=== PATIENT | female | born 1930 | race Caucasian/White ===

== ENCOUNTER → 2016-10-22 | Outpatient (CLI) | payer OTHER ==
[~2016-10-22] MED LIST: AMLO2.5T PO; CARV12.52 PO; DABI1CAP PO; DONE1TAB11 PO; ESCI1TAB6 PO; FURO-85 PO; LEVO112T4 PO; VALA1TAB2 PO; [UNRECOGNIZED DRUG - CODE] PO; [UNRECOGNIZED DRUG - OTHER] IV
--- NOTE | 2016-10-22 15:17 | DIAGNOSTIC IMAGING REPORT ---
MRI OF THE BRAIN WITHOUT AND WITH IV CONTRAST CLINICAL HISTORY: COGNITIVE DECLINE mental status change COMPARISON STUDY: No previous studies for comparison. TECHNIQUE: Utilizing a 1.5 [place] magnet and dedicated coil, multiplanar, multiecho imaging of the brain was performed pre and postcontrast administration. IV administration of 8.5 mL of Gadavist contrast was uneventful. FINDINGS: Considerable chronic small vessel change of periventricular deep matter regions. Moderate atrophy. Ventricular system is midline. No significant postcontrast enhancement. No evidence for an acute ischemic insult based on diffusion imaging. IMPRESSION: 1. Considerable chronic small vessel change throughout both cerebral hemispheres. 2. Atrophy. 3. No acute process. Electronically signed by: Kevin Acevedo M.D. 10/22/2016 3:16 PM Dictated Date/Time: 10/22/2016 3:13 PM
== END | disposition home or self-care (01) ==
LOC: C.MRI 13:58
PROVIDERS: ATTEND Nurse Practitioner Family
DX: R26.89 Other abnormalities of gait and mobility (principal); R41.89 Other symptoms and signs involving cognitive functions and awareness; R32 Unspecified urinary incontinence

== ENCOUNTER → 2016-10-30 | Outpatient (CLI) | payer OTHER ==
--- NOTE | 2016-10-30 18:41 | DIAGNOSTIC IMAGING REPORT ---
CHEST 2 VIEWS ROUTINE CLINICAL HISTORY: R41.0 dyspnea COMPARISON STUDY: No previous studies for comparison. FINDINGS: Diffuse emphysematous and chronic interstitial change. Diaphragms smooth but flattened. Calcific angles are sharp. IMPRESSION: Emphysematous change. Interstitial fibrotic change bilaterally Electronically signed by: Kevin Acevedo M.D. 10/30/2016 6:39 PM Dictated Date/Time: 10/30/2016 6:39 PM
[2016-10-30 20:10] LABS: LYME DISEASE AB IGG NEG (NEG); LYME DISEASE AB IGM NEG (NEG)
== END | disposition home or self-care (01) ==
LOC: C.RAD 18:10
PROVIDERS: ATTEND Nurse Practitioner Family
DX: R41.0 Disorientation, unspecified (principal)

== ENCOUNTER 2016-12-08 20:17 | Inpatient (IN) | payer OTHER ==
[~2016-12-08] VITALS: Ht 157.5 cm; Wt 54.0 kg
[2016-12-08] MEDS ORDERED: SODIUM CHLORIDE 0.9% 1000ML 1,000 ML IV STA (20:42)
[2016-12-08] MEDS ORDERED: AMLO2.5T PO (20:52)
[2016-12-08] MEDS ORDERED: FURO-85 PO (20:52)
[2016-12-08] MEDS ORDERED: DABI1CAP PO (20:52)
[2016-12-08] MEDS ORDERED: LEVO112T4 PO (20:52)
[2016-12-08] MEDS ORDERED: DONE1TAB11 PO (20:52)
[2016-12-08] MEDS ORDERED: VALA1TAB2 PO (20:52)
[2016-12-08] MEDS ORDERED: CARV12.52 PO (20:52)
[2016-12-08] MEDS ORDERED: ESCI1TAB6 PO (20:52)
[2016-12-08] MEDS ORDERED: [UNRECOGNIZED DRUG - CODE] PO (20:52)
[2016-12-08 21:14] LABS: BASO % 0.4 %; BASO ABS # 0.03 K/uL (0-0.2); COMPLETE YES; EOS % 0.5 %; HEMATOCRIT 42.8 % (37-47); IG% 0.3 %; LYMPH % 17.8 %; MEAN CELL VOLUME 84.9 fL (80-100); MEAN CORPUSCULAR HEMOGLOBIN 28.6 pg (25-34); MEAN CORPUSCULAR HGB CONC 33.6 g/dl (32-36); MEAN PLATELET VOLUME 9.7 fL (7.4-10.4); MONO % 9.5 %; NEUT % 71.5 %; PLATELET COUNT 206 K/uL (130-400); RED BLOOD COUNT 5.04 M/uL (4.2-5.4); WHITE BLOOD COUNT 7.87 K/uL (4.8-10.8)
--- NOTE | 2016-12-08 21:15 | DIAGNOSTIC IMAGING REPORT ---
CHEST ONE VIEW PORTABLE CLINICAL HISTORY: Altered mental status. Weakness. COMPARISON STUDY: 10/30/2016 FINDINGS: The heart is mildly enlarged. There is persistent but decreasing interstitial thickening. There is no lobar consolidation. There is a linear subsegmental atelectatic change left base. There are no significant pleural effusions.[ IMPRESSION: AP portable study. No acute findings. Electronically signed by: Arvin Branham M.D. 12/08/2016 9:14 PM Dictated Date/Time: 12/08/2016 9:13 PM
[2016-12-08 21:33] LABS: ALT/SGPT 27 U/L (12-78); BLOOD UREA NITROGEN 21 mg/dl (7-18); BUN/CREATININE RATIO 20.6 (10-20); CALCIUM 9.9 mg/dl (8.5-10.1); CARBON DIOXIDE 23 mmol/L (21-32); CHLORIDE 95 mmol/L (98-107); GLUCOSE 75 mg/dl (70-99); MAGNESIUM 1.9 mg/dl (1.8-2.4); POTASSIUM 4.1 mmol/L (3.5-5.1); SODIUM 127 mmol/L (136-145)
[2016-12-08 21:37] LABS: INR 1.1 (0.9-1.1); PARTIAL THROMBOPLASTIN RATIO 1.5
[2016-12-08 21:44] LABS: ALKALINE PHOSPHATASE 66 U/L (45-117); AST/SGOT 32 U/L (15-37); CKMB/CK RATIO 1.5 (0-3.0)
--- NOTE | 2016-12-08 22:28 | DIAGNOSTIC IMAGING REPORT ---
CT HEAD WITHOUT CONTRAST (CT) CLINICAL HISTORY: Change in mental status. Weakness. COMPARISON STUDY: MRI the brain dated 10/22/2016 TECHNIQUE: Axial CT of the brain is performed from the vertex to the skull base. IV contrast was not administered for this examination. A dose lowering technique was utilized adhering to the principles of ALARA. CT DOSE: 1074.96 mGy.cm FINDINGS: No intra or extra-axial mass lesions are visualized. There is no CT evidence of acute cortical infarction. There is no evidence of midline shift. There is no acute hemorrhage. No calvarial fractures are visualized. There are extensive white matter hypodensities likely on a small vessel basis. There are old thalamic lacunar infarcts. There is no evidence of pathologic ventricular dilatation. There is no evidence of acute sinusitis. There are tiny air droplets in the region the right cavernous sinus. These are not felt to be of acute clinical significance IMPRESSION: Extensive white matter disease. 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 No acute intracranial findings. Electronically signed by: Arvin Branham M.D. 12/08/2016 10:26 PM Dictated Date/Time: 12/08/2016 10:24 PM
[2016-12-08 22:45] LABS: URINE APPEARANCE CLEAR (CLEAR); URINE BILIRUBIN NEG (NEG); URINE COLOR YELLOW; URINE NITRITE NEG (NEG); URINE SPECIFIC GRAVITY 1.014 (1.000-1.030); UROBILINOGEN NEG (NEG); ZZURINE CULT IF INDIC CATH NO
[2016-12-08 22:49] LABS: MANUAL MICROSCOPIC REQUIRED? NO; REVIEW REQ? NO
[2016-12-09] MEDS ORDERED: ACYCLOVIR SOD INJ 750 MG in DEXTROSE 5% 250ML 250 ML IV SCH (00:30)
--- NOTE | 2016-12-09 00:53 | EMERGENCY ROOM VISIT NOTE ---
History Report prepared by Lulu: Aleshia Villalta Under the Supervision of: Dr. Toan Augustine D.O. First contact with patient: 20:24 Chief Complaint: CONFUSION Stated Complaint: LEGS WON'T WORK,SHINGLES,CONFUSION History of Present Illness The patient is an 86 year old female who presents to the Emergency Room with complaints of worsening lower extremity weakness starting 1700 yesterday. The patient has a history of dementia. The history is provided by the patient's family. They state that her legs seems weaker than normal and that there seems to be a "disconnect between brain and legs". She seems confused. She usually is able to ambulate with a walker. Yesterday around 1700, she started having difficulty walking with her walker. Since this morning she has not been walking at all. She has become "petrified of falling". She reports some nausea. She denies any abdominal pain or SOB. She seemed to urinate less last night. The patient was diagnosed with shingles 2 days ago and was started on Valtrex. The patient has a history of Caraballo's palsy and her family states that her face appears normal. Source of History: patient, family Onset: 1700 yesterday Position: leg (bilateral) Quality: other (weakness) Timing: worsening Associated Symptoms: + nausea, No SOB, No abdominal pain Note: Pt is confused, urinating less. Review of Systems See HPI for pertinent positives & negatives. A total of 10 systems reviewed and were otherwise negative. Past Medical & Surgical Medical Problems: (1) Atrial fibrillation (2) Dementia Family History Cancer Heart disease Social History Smoking Status: Former Smoker Housing Status: lives with family Current/Historical Medications Scheduled Amlodipine (Norvasc), 2.5 MG PO QAM Carvedilol (Coreg), 12.5 MG PO QAM Dabigatran Etexilate Mesylate (Pradaxa), 75 MG PO BID Donepezil Hydrochloride (Donepezil Hcl), 5 MG PO HS Escitalopram Oxalate (Lexapro), 5 MG PO QAM Furosemide (Lasix), 20 MG PO 3XWK Levothyroxine Sodium (Levothyroxine Sodium), 112 MCG PO QAM Melatonin (Melatonin), 300 MCG PO HS Valacyclovir Hcl (Valtrex), 1,000 MG PO Q8 Allergies Coded Allergies: No Known Allergies (Unverified , 12/08/16) Physical Exam Vital Signs Date Time Temp Pulse Resp B/P (MAP) Pulse Ox O2 Delivery O2 Flow Rate FiO2 12/08/16 23:17 99 17 91 12/08/16 22:47 104 17 95 12/08/16 22:12 96 12/08/16 21:57 161/107 12/08/16 21:47 107 26 12/08/16 21:16 152/100 12/08/16 20:19 36.3 115 20 177/89 92 Room Air Physical Exam CONSTITUTIONAL/VITAL SIGNS: Reviewed / noted above. GENERAL: Non-toxic in appearance. INTEGUMENTARY: Warm, dry, and [place]. Shingles type rash on the left arm. HEAD: Normocephalic. EYES: without scleral icterus or trauma. ENT/OROPHARYNX: clear and moist. LYMPHADENOPATHY/NECK: Is supple without lymphadenopathy or meningismus. RESPIRATORY: Lungs clear and equal. CARDIOVASCULAR: Regular rate and rhythm. GI/ABDOMEN: Soft and nontender. No organomegaly or pulsatile mass. No rebound or guarding. Normal bowel sounds. EXTREMITIES: Normal patellar reflexes and symmetric strength, generalized weakness. BACK: No CVA tenderness. NEUROLOGICAL: Asymmetrical facial features although her family notes this is chronic and related to previous Caraballo's palsy. PSYCHIATRIC: normal affect. MUSCULOSKELETAL: Normally developed with good muscle tone. Medical Decision & Procedures ER Provider Diagnostic Interpretation: X ray results and stated below per my interpretation and radiology interpretation. Radiology results as stated below per my review and radiologist interpretation: CHEST ONE VIEW PORTABLE CLINICAL HISTORY: Altered mental status. Weakness. COMPARISON STUDY: 10/30/2016 FINDINGS: The heart is mildly enlarged. There is persistent but decreasing interstitial thickening. There is no lobar consolidation. There is a linear subsegmental atelectatic change left base. There are no significant pleural effusions.[ IMPRESSION: AP portable study. No acute findings. Electronically signed by: Arvin Branham M.D. 12/08/2016 9:14 PM Dictated Date/Time: 12/08/2016 9:[address] HEAD WITHOUT CONTRAST (CT) CLINICAL HISTORY: Change in mental status. Weakness. COMPARISON STUDY: MRI the brain dated 10/22/2016 TECHNIQUE: Axial CT of the brain is performed from the vertex to the skull base. IV contrast was not administered for this examination. A dose lowering technique was utilized adhering to the principles of ALARA. CT DOSE: 1074.96 mGy.cm FINDINGS: No intra or extra-axial mass lesions are visualized. There is no CT evidence of acute cortical infarction. There is no evidence of midline shift. There is no acute hemorrhage. No calvarial fractures are visualized. There are extensive white matter hypodensities likely on a small vessel basis. There are old thalamic lacunar infarcts. There is no evidence of pathologic ventricular dilatation. There is no evidence of acute sinusitis. There are tiny air droplets in the region the right cavernous sinus. These are not felt to be of acute clinical significance IMPRESSION: Extensive white matter disease. 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 No acute intracranial findings. Electronically signed by: Arvin Branham M.D. 12/08/2016 10:26 PM Dictated Date/Time: 12/08/2016 10:24 PM Laboratory Results 12/08/16 21:00 Red Blood Count 5.04, Mean Corpuscular Volume 84.9, Mean Corpuscular Hemoglobin 28.6, Mean Corpuscular Hemoglobin Concent 33.6, Mean Platelet Volume 9.7, Neutrophils (%) (Auto) 71.5, Lymphocytes (%) (Auto) 17.8, Monocytes (%) (Auto) 9.5, Eosinophils (%) (Auto) 0.5, Basophils (%) (Auto) 0.4, Neutrophils # (Auto) 5.63, Lymphocytes # (Auto) 1.40, Monocytes # (Auto) 0.75, Eosinophils # (Auto) 0.04, Basophils # (Auto) 0.03 12/08/16 21:00 Test 12/08/16 21:00 12/08/16 22:00 White Blood Count 7.87 K/uL (4.8-10.8) Red Blood Count 5.04 M/uL (4.2-5.4) Hemoglobin 14.4 g/dL (12.0-16.0) Hematocrit 42.8 % (37-47) Mean Corpuscular Volume 84.9 fL (80-100) Mean Corpuscular Hemoglobin 28.6 pg (25-34) Mean Corpuscular Hemoglobin Concent 33.6 g/dl (32-36) Platelet Count 206 K/uL (130-400) Mean Platelet Volume 9.7 fL (7.4-10.4) Neutrophils (%) (Auto) 71.5 % Lymphocytes (%) (Auto) 17.8 % Monocytes (%) (Auto) 9.5 % Eosinophils (%) (Auto) 0.5 % Basophils (%) (Auto) 0.4 % Neutrophils # (Auto) 5.63 K/uL (1.4-6.5) Lymphocytes # (Auto) 1.40 K/uL (1.2-3.4) Monocytes # (Auto) 0.75 K/uL (0.11-0.59) Eosinophils # (Auto) 0.04 K/uL (0-0.5) Basophils # (Auto) 0.03 K/uL (0-0.2) RDW Standard Deviation 44.5 fL (36.4-46.3) RDW Coefficient of Variation 14.4 % (11.5-14.5) Immature Granulocyte % (Auto) 0.3 % Immature Granulocyte # (Auto) 0.02 K/uL (0.00-0.02) Prothrombin Time 12.0 SECONDS (9.0-12.0) Prothromb Time International Ratio 1.1 (0.9-1.1) Activated Partial Thromboplast Time 40.0 SECONDS (21.0-31.0) Partial Thromboplastin Ratio 1.5 Anion Gap 9.0 mmol/L (3-11) Est Creatinine Clear Calc Drug Dose 31.4 ml/min Estimated GFR () 58.7 Estimated GFR (Non- 50.6 BUN/Creatinine Ratio 20.6 (10-20) Calcium Level 9.9 mg/dl (8.5-10.1) Magnesium Level 1.9 mg/dl (1.8-2.4) Total Bilirubin 0.5 mg/dl (0.2-1) Direct Bilirubin 0.1 mg/dl (0-0.2) Aspartate Amino Transf (AST/SGOT) 32 U/L (15-37) Alanine Aminotransferase (ALT/SGPT) 27 U/L (12-78) Alkaline Phosphatase 66 U/L (45-117) Total Creatine Kinase 40 U/L (26-192) Creatine Kinase MB 0.6 ng/ml (0.5-3.6) Creatine Kinase MB Ratio 1.5 (0-3.0) Troponin I < 0.015 ng/ml (0-0.045) Total Protein 7.8 gm/dl (6.4-8.2) Albumin 3.5 gm/dl (3.4-5.0) Thyroid Stimulating Hormone (TSH) 1.410 uIu/ml (0.300-4.500) Urine Color YELLOW Urine Appearance CLEAR (CLEAR) Urine pH 7.0 (4.5-7.5) Urine Specific [place] 1.014 (1.000-1.030) Urine Protein NEG (NEG) Urine Glucose (UA) NEG (NEG) Urine Ketones NEG (NEG) Urine Occult Blood TRACE (NEG) Urine Nitrite NEG (NEG) Urine Bilirubin NEG (NEG) Urine Urobilinogen NEG (NEG) Urine Leukocyte Esterase NEG (NEG) Urine WBC (Auto) 0 /hpf (0-5) Urine RBC (Auto) 0-4 /hpf (0-4) Urine Hyaline Casts (Auto) 0 /lpf (0-5) Urine Epithelial Cells (Auto) 5-10 /lpf (0-5) Urine Bacteria (Auto) NEG (NEG) Laboratory results as stated above per my review. Medications Administered Medications (Trade) Dose Ordered Sig/Latonya Route Start Time Stop Time Status Last Admin Dose Admin Sodium Chloride 1,000 ml @ 300 mls/hr Q3H20M STAT IV 12/08/16 20:42 12/09/16 00:01 DC 12/08/16 21:17 300 MLS/HR ECG Indication: weakness Rate (beats per minute): 116 Rhythm: atrial fibrillation Findings: no ectopy, other (no acute injury) ED Course 2024: Previous medical records were reviewed. The patient was evaluated in room A10. A complete history and physical examination was performed. 2041: NSS 1000 ml @ 300 mls/hr IV. 0013: On reevaluation, the patient is resting comfortably. I discussed the results and findings with her and her family. They verbalized agreement of the treatment plan. The patient will be evaluated for further management and care. 0027: I discussed the patient's case with Dr. Mcfarland, [facility] hospitalist service. The patient will be evaluated for further treatment and disposition. 0030: Acyclovir Sodium 750 mg/Dextrose 265 ml @ 265 mls/hr IV. Medical Decision Differential includes acute coronary syndrome, myocardial infarction, CVA, TIA, anemia, infection, pneumonia, UTI, pyelonephritis, poor nutrition, dehydration, electrolyte disturbance,hypoglycemia. This is an 86-year-old female who presents to the ED with a chief complaint of weakness. According to the family, the patient normally is around the walker. Today she was unable to walk. She seems a little more confused than her baseline. She does have a history of dementia. The patient was diagnosed with shingles a few days ago in her left arm. The patient has shingles of the left arm that appears to be following with one dermatome. She also has a rash in the perineum area that looks similar. This is concerning for disseminated shingles. She has been on Valtrex for the past few days. An EKG shows A. fib at rate of 116. She does have a chronic history of A. fib. She is on an oral anticoagulant. Her sodium was 127, BUN is 21. CBC was normal. Troponin was negative. TSH is normal. Urine did not show infection. CT scan of the brain and chest x-ray did not show acute disease. The patient was treated with IV fluids as well as IV acyclovir. The patient was seen with the hospitalist for further inpatient evaluation and care. Medication Reconcilliation Current Medication List: was personally reviewed by me Blood Pressure Screening Patient's blood pressure: Elevated blood pressure Blood pressure disposition: Referred to PCP Consults Time Called: 23 Consulting Physician: Dr. Mcfarland [facility] hospitalist service Returned Call: [phone] Discussed the patient's case. The patient will be evaluated for further treatment and disposition. Impression Primary Impression: Varicella zoster Additional Impressions: Hyponatremia Disseminated varicella Scribe Attestation The scribe's documentation has been prepared under my direction and personally reviewed by me in its entirety. I confirm that the note above accurately reflects all work, treatment, procedures, and medical decision making performed by me. Departure Information Dispostion Being Evaluated By Hospitalist Referrals Vida Bloom, C.R.N.P. (PCP) Patient Instructions My [facility] Problem Qualifiers
[2016-12-09] MEDS ORDERED: ONDANSETRON INJ 2 MG/ML 2 ML VIAL IV PRN (01:00)
[2016-12-09] MEDS ORDERED: MAGNESIUM HYDROXIDE SUSP 30 ML UDC PO PRN (01:00)
[2016-12-09] MEDS ORDERED: ALUMINUM/MAGNESIUM/SIMETH (MAALOX MAX) 30 ML UDC PO PRN (01:00)
[2016-12-09] MEDS ORDERED: POLYETHYLENE (MIRALAX) 17 GM PACK PO PRN (01:00)
[2016-12-09 01:27] LABS: PHOSPHORUS 2.3 mg/dl (2.5-4.9)
[2016-12-09 02:54] VITALS: Ht 157.5 cm; Wt 54.0 kg
--- NOTE | 2016-12-09 03:03 | HISTORY & PHYSICAL EXAMINATION ---
DATE OF ADMISSION: 12/08/2016 HISTORY OF PRESENT ILLNESS: This is an 86-year-old female with a medical history of chronic atrial fibrillation, vascular dementia, hypertension and a Caraballo's palsy. The patient developed a diffuse rash extending from her shoulder down to her arm with scattered vesicles and blisters approximately 2-3 days prior. She had been complaining of pain at the origin of the rash initially. Her daughter took her to see her primary physician, who placed her on valacyclovir presuming that this was shingles. Over the last 2 days, she has become lethargic, more confused than baseline and very weak, so that she cannot walk without assistance. She was referred back to the hospital, where it was noted that in addition to the rash over her left shoulder and arm, she now has a rash close to her buttock and right side of her perineum. This is again diffuse and macular in nature with scattered vesicles and bullae. She does not currently complain of pain and has not had fevers at home. The patient herself was unable to contribute additional complaints to the HPI. Her daughter is present at bedside and did not report any chest pain, shortness of breath, nausea, vomiting, diarrhea or dysuria. Initial labs do show a low sodium and are consistent with hydration. PAST MEDICAL HISTORY: 1. Chronic atrial fibrillation. 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 3. Hypertension. 4. Hyperlipidemia. 5. Depression. 6. The daughter states that the patient since a fall a few months ago has exhibited functional decline and for this reason recently relocated from [place] to [place], so that she can assist in her care. 7. Hypothyroidism. MEDICATIONS: As follows: 1 Amlodipine 2.5 mg daily. 2. Carvedilol 12.5 mg daily. 3. Pradaxa 75 mg b.i.d. 4. Donepezil 5 mg at bedtime. 5. Lexapro 5 mg q.a.m. 6. Levothyroxine 112 mcg daily. 7. Melatonin 300 mcg at bedtime. 8. Lasix 20 mg 3 times a week. 9. Recently prescribed valacyclovir 1 g q. 8 hours. SOCIAL HISTORY: She quit smoking 30 years ago and does not drink alcohol. FAMILY HISTORY: It is felt that her mother from an MD. We do not have any other details. REVIEW OF SYSTEMS: Could not be obtained from this patient. She had initially been complaining of pain in her left arm with development of the rash. She was brought in for confusion and weakness in addition to a new rash in her perineal area. PHYSICAL EXAMINATION: VITAL SIGNS: Blood pressure 150/100, heart rate is 99, and respirations 17. She is afebrile and satting at 95% on room air. GENERAL: This is a pleasant, slightly confused elderly female. She is awake, alert, and oriented x1.5 in no distress. HEAD AND NECK: There is chronic facial asymmetry with left-sided paralysis. No JVD, bruits, or thrush. HEART: S1 and 2 faint irregular. No clearly audible murmurs. LUNGS: Clear to auscultation bilaterally. ABDOMEN: Nontender and nondistended. Bowel sounds present. EXTREMITIES: Show no clubbing, cyanosis or edema. SKIN: Examination of the skin. There is a diffuse erythematous macular rash over the arm and around the perineal area. There are some scattered vesicles and bulla. There is no pain to palpation of the rash. NEUROLOGIC: The patient is oriented approximately at baseline. She does not exhibit any new focal deficits. She has chronic facial asymmetry due to previous caraballo's palsy. She is able to coordinate her movements and comply with physical exam. LABORATORY DATA: White count 7.8, hemoglobin 14.4, and platelets 206. Sodium 127, potassium 4, chloride 95, CO2 of 23, BUN 21, creatinine 1, and glucose 73. DIAGNOSTIC STUDIES: EKG is consistent with atrial fibrillation and does not show acute ischemic changes. ASSESSMENT AND PLAN: This is an 86-year-old female with a medical history of chronic atrial fibrillation, vascular dementia, and hypertension. She presents with a diffuse rash, weakness, and confusion. She had been prescribed Valtrex approximately 3 days earlier for presumed shingles on her left arm. The rash seems to have spread and now involves her perineal area as well. She will be admitted with the followin. Rash presumed due to varicella. Differential might include herpetic rash. It is noted that currently the rash is not painful and does not accurately follow a dermatome distribution. The patient will be placed on acyclovir 8 mg/kg t.i.d. and will be evaluated by the infectious disease service. We may have to consult dermatology if the diagnosis is not definitive and if it fails to improve in short term with the IV acyclovir. 2. Atrial fibrillation. She will remain on Coreg in addition to Pradaxa. 3. Dementia. We will continue donepezil and supportive care. 4. Hypothyroidism, continue levothyroxine. 5. Hypertension. Continue amlodipine and Coreg. 6. Hyponatremia likely secondary dehydration. The patient has been placed on IV fluids. We will trend her BNP. Total time for this admit including chart review, discussion with the ER physician, review of labs, medications, available records, discussion with the patient and daughter 38 minutes. MIGUEL ANGEL
[2016-12-09 03:10] VITALS: BP 169/81; PULSE 119; TEMP 37.4; O2SAT 94
[2016-12-09] MEDS ORDERED: ACYCLOVIR CONSULT ACTIVE PRN (04:45)
[2016-12-09] MEDS: NSS + 20MEQ KCL 1000ML 1,000 ML IV SCH ×2 (05:04→13:54)
[2016-12-09] MEDS: LEVOTHYROXINE 112 MCG TAB PO SCH (05:46)
[2016-12-09 07:02] VITALS: BP 153/92; PULSE 124; TEMP 37.9; O2SAT 91
[2016-12-09] MEDS: CARVEDILOL 12.5 MG TAB PO SCH (07:27)
[2016-12-09] MEDS: AMLODIPINE BESYLATE 5 MG TAB PO SCH (07:27)
[2016-12-09] MEDS: DABIGATRAN ELEXILATE 75 MG CAP PO SCH ×2 (07:27→21:25)
[2016-12-09] MEDS: ACETAMINOPHEN 325 MG TAB PO PRN (07:27)
[2016-12-09] MEDS: ESCITALOPRAM OXALATE 10 MG TAB PO SCH (07:28)
[2016-12-09 09:00] LABS: BUN/CREATININE RATIO 14.6 (10-20); CALCIUM 8.9 mg/dl (8.5-10.1); CREATININE 0.81 mg/dl (0.60-1.20); POTASSIUM 3.5 mmol/L (3.5-5.1)
[2016-12-09 09:16] VITALS: TEMP 36.4
--- NOTE | 2016-12-09 10:36 | Medical Consult ---
Consultation Date of Consultation: Dec 09, 2016. Attending Physician: Gerardo Small D.O. Reason for Consultation: Varicella versus herpes simplex infection History of Present Illness 86-year-old female with history of dementia, Caraballo's palsy, atrial fibrillation, who several days prior to admission developed blistering rash, initially with associated pain, involving her left arm. She was diagnosed zoster and started on oral valacyclovir. She then developed progressively worsening confusion, as well as similar rash involving her buttocks and perineal area. She was brought to the hospital admitted for possible disseminated varicella infection. She has been started on IV acyclovir. She remains confused but denies any specific complaints. No report of fever. Past Medical/Surgical History Medical Problems: (1) Disseminated varicella Status: Acute (2) Hyponatremia Status: Acute (3) Varicella zoster Status: Acute Medical Problems: (1) Atrial fibrillation (2) Dementia Family History Cancer Heart disease Social History Smoking Status: Unknown if Ever Smoked Housing Status: lives with family Allergies Coded Allergies: No Known Allergies (Unverified , 12/08/16) Current Inpatient Medications Current Inpatient Medications Medications (Trade) Dose Ordered Sig/Latonya Route Start Time Stop Time Status Last Admin Dose Admin Acetaminophen (Tylenol Tab) 650 mg Q4H PRN PO 12/09/16 01:00 01/08/17 00:59 12/09/16 07:27 650 MG Al Hydrox/Mg Hydrox/Simethicone (Maalox Max Susp) 15 ml Q4H PRN PO 12/09/16 01:00 01/08/17 00:59 Magnesium Hydroxide (Milk Of Magnesia Susp) 30 ml Q6H PRN PO 12/09/16 01:00 01/08/17 00:59 Polyethylene (Miralax Powder Packet) 17 gm DAILY PRN PO 12/09/16 01:00 01/08/17 00:59 Ondansetron HCl (Zofran Inj) 4 mg Q6H PRN IV 12/09/16 01:00 01/08/17 00:59 Potassium Chloride/Sodium Chloride 1,000 ml @ 100 mls/hr Q10H IV 12/09/16 04:30 12/10/16 00:29 12/09/16 05:04 100 MLS/HR Amlodipine Besylate (Norvasc Tab) 2.5 mg QAM PO 12/09/16 08:00 01/08/17 08:59 12/09/16 07:27 2.5 MG Carvedilol (Coreg Tab) 12.5 mg QAM PO 12/09/16 08:00 01/08/17 08:59 12/09/16 07:27 12.5 MG Dabigatran (Pradaxa Cap) 75 mg BID PO 12/09/16 08:00 01/08/17 08:59 12/09/16 07:27 75 MG Donepezil HCl (Aricept Tab) 5 mg HS PO 12/09/16 21:00 01/08/17 20:59 Escitalopram Oxalate (Lexapro Tab) 5 mg QAM PO 12/09/16 08:00 01/08/17 08:59 12/09/16 07:28 5 MG Levothyroxine Sodium (Synthroid Tab) 112 mcg DAILYBB PO 12/09/16 06:30 01/08/17 06:29 12/09/16 05:46 112 MCG Acyclovir Sodium 500 mg/Dextrose 110 ml @ 110 mls/hr Q12H IV 12/09/16 14:00 12/19/16 13:59 Acyclovir Sodium (Consult) 1 ea UD PRN N/A 12/09/16 04:45 01/08/17 04:44 Review of Systems Unable to obtain adequate review of systems because of patient's mental status Physical Exam Date Time Temp Pulse Resp B/P (MAP) Pulse Ox O2 Delivery O2 Flow Rate FiO2 12/09/16 09:16 36.4 12/09/16 08:00 Room Air 12/09/16 07:02 37.9 124 24 153/92 (112) 91 12/09/16 03:10 37.4 119 22 169/81 (110) 94 Nasal Cannula 12/09/16 02:54 Nasal Cannula 2.0 12/09/16 01:53 114 23 189/95 94 Nasal Cannula 2.0 12/09/16 00:32 112 27 168/135 92 Nasal Cannula 2.0 12/09/16 00:01 109 24 140/107 93 Nasal Cannula 2.0 12/08/16 23:17 99 17 91 12/08/16 22:47 104 17 95 12/08/16 22:12 96 12/08/16 21:57 161/107 12/08/16 21:47 107 26 12/08/16 21:16 152/100 12/08/16 20:19 36.3 115 20 177/89 92 Room Air General Appearance: WD/WN, no apparent distress Head: normocephalic, atraumatic Eyes: normal inspection, EOMI, sclerae normal ENT: normal ENT inspection, pharynx normal Neck: supple, no adenopathy, thyroid normal, trachea midline Respiratory/Chest: chest non-tender, lungs clear, normal breath sounds, no respiratory distress Cardiovascular: no gallop, no murmur, + irregularly irregular Abdomen/GI: normal bowel sounds, non tender, soft, no organomegaly Back: normal inspection, no CVA tenderness Extremities/Musculoskelatal: no calf tenderness, non-tender Neurologic/Psych: alert, + disoriented, + pertinent finding (Right Caraballo's palsy ) Skin: normal color, + pertinent finding (Blistering rash involving left arm, buttock and perineum, with 1 or 2 other scattered lesions.) Laboratory Results Patient Name: RALEIGH ARGUELLES Unit Number: [id number] Dictated: 12/08/162112 Transcribed: 12/08/162112 ARG Printed Date/Time: [~ rep prt dt]/[~ rep prt tm] [~ rep ct labl] - [~ rep ct ivnm] [facility] [place] [place] [address] Dictated: 12/08/162112 Transcribed: 12/08/162112 ARG Printed Date/Time: [~ rep prt dt]/[~ rep prt tm] [~ rep ct labl] - [~ rep ct ivnm] [~ rep ct add3]] CHEST ONE VIEW PORTABLE CLINICAL HISTORY: Altered mental status. Weakness. COMPARISON STUDY: 10/30/2016 FINDINGS: The heart is mildly enlarged. There is persistent but decreasing interstitial thickening. There is no lobar consolidation. There is a linear subsegmental atelectatic change left base. There are no significant pleural effusions.[ IMPRESSION: AP portable study. No acute findings. Electronically signed by: Arvin Branham M.D. 12/08/2016 9:14 PM Dictated Date/Time: 12/08/2016 9:13 PM The status of this report is Signed. Draft = Not yet reviewed or approved by Radiologist. Signed = Reviewed and approved by Radiologist. <AttendingPhy></AttendingPhy> <FamilyPhy>Vida Bloom C.R.N.PEagle</FamilyPhy> <PrimaryPhy>Vida Bloom C.REagleN.P.</PrimaryPhy> <UnitNumber>[id number]</ UnitNumber> <VisitNumber>[id number]</VisitNumber> <PatientName>RALEIGH ARGUELLES</ PatientName> <DateOfBirth>1930</DateOfBirth> <Location>[facility]</Location> < ServiceDate>12/08/16</ServiceDate> <MNE>ESINDI</MNE> <OrderingPhy>Toan Augustine D.O.</OrderingPhy> <OrderingPhyMNE>f rep ord dr parisi</OrderingPhyMNE> < DictatingPhyMNE>f rep dict dr parisi</DictatingPhyMNE> <CCListMNE>f rep ct mne</ CCListMNE> <AdmittingPhyMNE>f pt admit dr parisi</AdmittingPhyMNE> <AttendingPhyMNE >f pt attend dr parisi</AttendingPhyMNE> <ConsultingPhyMNE>f pt consult dr parisi</ConsultingPhyMNE> <FamilyPhyMNE>f pt fam dr parisi</FamilyPhyMNE> <OtherPhyMNE>f pt other dr parisi</OtherPhyMNE> < PrimaryPhyMNE>f pt prim care dr parisi</PrimaryPhyMNE> <ReferringPhyMNE>f pt referring dr parisi</ReferringPhyMNE> Last 24 Hours Test 12/08/16 21:00 12/08/16 22:00 12/09/16 07:51 White Blood Count 7.87 K/uL Red Blood Count 5.04 M/uL Hemoglobin 14.4 g/dL Hematocrit 42.8 % Mean Corpuscular Volume 84.9 fL Mean Corpuscular Hemoglobin 28.6 pg Mean Corpuscular Hemoglobin Concent 33.6 g/dl Platelet Count 206 K/uL Mean Platelet Volume 9.7 fL Neutrophils (%) (Auto) 71.5 % Lymphocytes (%) (Auto) 17.8 % Monocytes (%) (Auto) 9.5 % Eosinophils (%) (Auto) 0.5 % Basophils (%) (Auto) 0.4 % Neutrophils # (Auto) 5.63 K/uL Lymphocytes # (Auto) 1.40 K/uL Monocytes # (Auto) 0.75 K/uL Eosinophils # (Auto) 0.04 K/uL Basophils # (Auto) 0.03 K/uL RDW Standard Deviation 44.5 fL RDW Coefficient of Variation 14.4 % Immature Granulocyte % (Auto) 0.3 % Immature Granulocyte # (Auto) 0.02 K/uL Prothrombin Time 12.0 SECONDS Prothromb Time International Ratio 1.1 Activated Partial Thromboplast Time 40.0 SECONDS Partial Thromboplastin Ratio 1.5 Sodium Level 127 mmol/L 130 mmol/L Potassium Level 4.1 mmol/L 3.5 mmol/L Chloride Level 95 mmol/L 98 mmol/L Carbon Dioxide Level 23 mmol/L 23 mmol/L Anion Gap 9.0 mmol/L 9.0 mmol/L Blood Urea Nitrogen 21 mg/dl 12 mg/dl Creatinine 1.00 mg/dl 0.81 mg/dl Est Creatinine Clear Calc Drug Dose 31.4 ml/min 38.7 ml/min Estimated GFR () 58.7 75.7 Estimated GFR (Non- 50.6 65.3 BUN/Creatinine Ratio 20.6 14.6 Random Glucose 75 mg/dl 89 mg/dl Calcium Level 9.9 mg/dl 8.9 mg/dl Phosphorus Level 2.3 mg/dl Magnesium Level 1.9 mg/dl Total Bilirubin 0.5 mg/dl Direct Bilirubin 0.1 mg/dl Aspartate Amino Transf (AST/SGOT) 32 U/L Alanine Aminotransferase (ALT/SGPT) 27 U/L Alkaline Phosphatase 66 U/L Total Creatine Kinase 40 U/L Creatine Kinase MB 0.6 ng/ml Creatine Kinase MB Ratio 1.5 Troponin I < 0.015 ng/ml Total Protein 7.8 gm/dl Albumin 3.5 gm/dl Thyroid Stimulating Hormone (TSH) 1.410 uIu/ml Urine Color YELLOW Urine Appearance CLEAR Urine pH 7.0 Urine Specific [place] 1.014 Urine Protein NEG Urine Glucose (UA) NEG Urine Ketones NEG Urine Occult Blood TRACE Urine Nitrite NEG Urine Bilirubin NEG Urine Urobilinogen NEG Urine Leukocyte Esterase NEG Urine WBC (Auto) 0 /hpf Urine RBC (Auto) 0-4 /hpf Urine Hyaline Casts (Auto) 0 /lpf Urine Epithelial Cells (Auto) 5-10 /lpf Urine Bacteria (Auto) NEG Assessment & Plan Clinical picture most consistent with diagnosis of disseminated zoster infection , and worry about the possibility of [employer] involvement as well. Therefore I would continue patient on IV acyclovir to complete 10 days of therapy. Will follow.
--- NOTE | 2016-12-09 13:16 | Medical Student: [facility] ---
Med Student Progress Note Date of Service Dec 09, 2016. 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 Patient's daughter states that patient was seen at [facility] on 12/06, diagnosed with shingles on her left arm and prescribed Valacyclovir. Patient began to complain for bilateral lower leg weakness when trying to ambulate with walker at 1700 on 12/07. Patient's daughter states rash spread to patient's right buttock and upper posterior side of right thigh over past 2 days. Patient's daughter reports she was originally concerned about patient's mental status and noted increased confusion, but states currently patient is around baseline for her recently diagnosed dementia. Patient denies any pain concerning her rash and wishes to go home. Patient also denies any current symptoms (abdominal pain, chest pain, nausea, vomiting, diarrhea, dysuria, shortness of breath, headache, vision/hearing changes, fever, chills, sore throat, or nasal congestion). Review of Systems Constitutional: + weakness (see HPI), No fever, No chills Eyes: No worsening of vision, No redness ENT: + nasal symptoms (rhinorrhea at baseline), No sore throat Respiratory: No cough, No shortness of breath Cardiac: No chest pain, No edema, No palpitations Abdomen: No pain, No nausea, No vomiting, No diarrhea Musculoskeletal: No joint pain, No muscle pain Female : No dysuria, No incontinence Neurologic: + memory loss, + weakness, + balance problems (secondary to weakness in lower extremities) Heme: + abnormal bleeding/bruising (on Pradaxa for A-fib) Endo: No excessive thirst, No excessive urination Skin: + see HPI, + rash (blisters and reddness on left shoulder to elbow/back, right back of upper thigh and buttock), + new/changing skin lesions, + color change Objective Vital Signs Date Time Temp Pulse Resp B/P (MAP) Pulse Ox O2 Delivery O2 Flow Rate FiO2 12/09/16 09:16 36.4 12/09/16 08:00 Room Air 12/09/16 07:02 37.9 124 24 153/92 (112) 91 12/09/16 03:10 37.4 119 22 169/81 (110) 94 Nasal Cannula 12/09/16 02:54 Nasal Cannula 2.0 12/09/16 01:53 114 23 189/95 94 Nasal Cannula 2.0 12/09/16 00:32 112 27 168/135 92 Nasal Cannula 2.0 12/09/16 00:01 109 24 140/107 93 Nasal Cannula 2.0 12/08/16 23:17 99 17 91 12/08/16 22:47 104 17 95 12/08/16 22:12 96 12/08/16 21:57 161/107 12/08/16 21:47 107 26 12/08/16 21:16 152/100 12/08/16 20:19 36.3 115 20 177/89 92 Room Air Physical Exam General Appearance: WD/WN, no apparent distress Eyes: bilateral eyes normal inspection ENT: normal ENT inspection, hearing grossly normal Neck: supple Respiratory/Chest: chest non-tender, lungs clear, normal breath sounds, no respiratory distress, no accessory muscle use Cardiovascular: no edema, + irregularly irregular Abdomen: normal bowel sounds, non tender, soft Extremities: non-tender, normal inspection, no pedal edema Neurologic/Psychiatric: alert, normal mood/affect, oriented x 3, + facial droop (left sided paralysis at baseline from history of Caraballo's palsy) Skin: + rash, + pertinent finding (erythematous base with several bulla in diffferent stages of healing on left upper extremity (shoulder to elbow and around to back), second smaller area on right buttock/right lower extremity.) Laboratory Results Last 24 Hours Test 12/08/16 21:00 12/08/16 22:00 12/09/16 07:51 White Blood Count 7.87 K/uL Red Blood Count 5.04 M/uL Hemoglobin 14.4 g/dL Hematocrit 42.8 % Mean Corpuscular Volume 84.9 fL Mean Corpuscular Hemoglobin 28.6 pg Mean Corpuscular Hemoglobin Concent 33.6 g/dl Platelet Count 206 K/uL Mean Platelet Volume 9.7 fL Neutrophils (%) (Auto) 71.5 % Lymphocytes (%) (Auto) 17.8 % Monocytes (%) (Auto) 9.5 % Eosinophils (%) (Auto) 0.5 % Basophils (%) (Auto) 0.4 % Neutrophils # (Auto) 5.63 K/uL Lymphocytes # (Auto) 1.40 K/uL Monocytes # (Auto) 0.75 K/uL Eosinophils # (Auto) 0.04 K/uL Basophils # (Auto) 0.03 K/uL RDW Standard Deviation 44.5 fL RDW Coefficient of Variation 14.4 % Immature Granulocyte % (Auto) 0.3 % Immature Granulocyte # (Auto) 0.02 K/uL Prothrombin Time 12.0 SECONDS Prothromb Time International Ratio 1.1 Activated Partial Thromboplast Time 40.0 SECONDS Partial Thromboplastin Ratio 1.5 Sodium Level 127 mmol/L 130 mmol/L Potassium Level 4.1 mmol/L 3.5 mmol/L Chloride Level 95 mmol/L 98 mmol/L Carbon Dioxide Level 23 mmol/L 23 mmol/L Anion Gap 9.0 mmol/L 9.0 mmol/L Blood Urea Nitrogen 21 mg/dl 12 mg/dl Creatinine 1.00 mg/dl 0.81 mg/dl Est Creatinine Clear Calc Drug Dose 31.4 ml/min 38.7 ml/min Estimated GFR () 58.7 75.7 Estimated GFR (Non- 50.6 65.3 BUN/Creatinine Ratio 20.6 14.6 Random Glucose 75 mg/dl 89 mg/dl Calcium Level 9.9 mg/dl 8.9 mg/dl Phosphorus Level 2.3 mg/dl Magnesium Level 1.9 mg/dl Total Bilirubin 0.5 mg/dl Direct Bilirubin 0.1 mg/dl Aspartate Amino Transf (AST/SGOT) 32 U/L Alanine Aminotransferase (ALT/SGPT) 27 U/L Alkaline Phosphatase 66 U/L Total Creatine Kinase 40 U/L Creatine Kinase MB 0.6 ng/ml Creatine Kinase MB Ratio 1.5 Troponin I < 0.015 ng/ml Total Protein 7.8 gm/dl Albumin 3.5 gm/dl Thyroid Stimulating Hormone (TSH) 1.410 uIu/ml Urine Color YELLOW Urine Appearance CLEAR Urine pH 7.0 Urine Specific [place] 1.014 Urine Protein NEG Urine Glucose (UA) NEG Urine Ketones NEG Urine Occult Blood TRACE Urine Nitrite NEG Urine Bilirubin NEG Urine Urobilinogen NEG Urine Leukocyte Esterase NEG Urine WBC (Auto) 0 /hpf Urine RBC (Auto) 0-4 /hpf Urine Hyaline Casts (Auto) 0 /lpf Urine Epithelial Cells (Auto) 5-10 /lpf Urine Bacteria (Auto) NEG Assessment and Plan Assessment and Plan: Assessment: Serina Gardner is a 86 yo female with PMHx of vascular dementia, chronic atrial fibrillation, HTN, and Caraballo's palsy of left side, presented with weakness x2 days, vesicular rash with erythematous base on left shoulder and right buttock/ thigh worsening x3 days, and potentially some confusion above baseline. Since admission patient was started on 8mg/kg TID of acyclovir and has been tachycardic and febrile. After infections disease consult, patient was recommended to continue IV acyclovir for 10 days. Considered diagnosis of UTI (no pertinent urine cytology and WBC of 7.89 on CBC) , cardiac cause (negative troponin), and acute neurologic cause (no acute intracranial findings on head CT without contrast). Plan: 1) Disseminated Zoster - Continue acyclovir 8mg/kg TID - Consult Infectious disease, who stated - Consult dermatology if symptoms not improving 2) Delirium causing generalized weakness - Continue care in hospital until can discharge to SNF or rehab (after afebrile for 24 hours and lesions have scabbed over). - Consult PT/OT/manager social responsibility - [place] patient to surroundings, times of day. 3) Hyponatremia - Continue IV fluids and trend BNPs and Sodium (127) 3) Vascular Dementia - Continue home medications (Donepezil 5mg at bedtime, Lexapro 5g/day, Melatonin 300 mcg/day) 4) Chronic atrial fibrillation / DVT prophylaxis - Continue home medications (Pradaxa 75mg/day and Carvedilol 12.5mg/day) 5) Hypothyroidism - Continue home medications (Levothyroxine 112mcg/day) 6) Chronic HTN - Continue home medications (amlodipine 2.5mg/day and Lasix 20mg 3x/week)
[2016-12-09] MEDS: ACYCLOVIR SOD INJ 500 MG in DEXTROSE 5% 100ML 100 ML IV SCH (13:54)
[2016-12-09 14:59] VITALS: BP 149/80; PULSE 111; TEMP 36.5; O2SAT 94
--- NOTE | 2016-12-09 15:14 | Family Medicine Progress Note ---
Progress Note Date of Service Dec 09, 2016. Subjective Pt evaluation today including: conversation w/ patient, conversation w/ family , physical exam, chart review, lab review, review of studies Pain: no pain reported this morning Voiding: no voiding problems, no incontinence Patient denies any pain and states that she is feeling better and wants to go home. She denies any itching, burning, numbness, tingling, fever or chills. Constitutional: No fever, No chills, No sweats Respiratory: No cough, No shortness of breath Cardiovascular: No chest pain, No palpitations Abdomen: No pain, No nausea, No vomiting Skin: + rash, No itch, No new/changing skin lesions, No bleeding Medications Current Inpatient Medications Medications (Trade) Dose Ordered Sig/Latonya Route Start Time Stop Time Status Last Admin Dose Admin Acetaminophen (Tylenol Tab) 650 mg Q4H PRN PO 12/09/16 01:00 01/08/17 00:59 12/09/16 07:27 650 MG Al Hydrox/Mg Hydrox/Simethicone (Maalox Max Susp) 15 ml Q4H PRN PO 12/09/16 01:00 01/08/17 00:59 Magnesium Hydroxide (Milk Of Magnesia Susp) 30 ml Q6H PRN PO 12/09/16 01:00 01/08/17 00:59 Polyethylene (Miralax Powder Packet) 17 gm DAILY PRN PO 12/09/16 01:00 01/08/17 00:59 Ondansetron HCl (Zofran Inj) 4 mg Q6H PRN IV 12/09/16 01:00 01/08/17 00:59 Potassium Chloride/Sodium Chloride 1,000 ml @ 100 mls/hr Q10H IV 12/09/16 04:30 12/10/16 00:29 12/09/16 13:54 100 MLS/HR Amlodipine Besylate (Norvasc Tab) 2.5 mg QAM PO 12/09/16 08:00 01/08/17 08:59 12/09/16 07:27 2.5 MG Carvedilol (Coreg Tab) 12.5 mg QAM PO 12/09/16 08:00 01/08/17 08:59 12/09/16 07:27 12.5 MG Dabigatran (Pradaxa Cap) 75 mg BID PO 12/09/16 08:00 01/08/17 08:59 12/09/16 07:27 75 MG Donepezil HCl (Aricept Tab) 5 mg HS PO 12/09/16 21:00 01/08/17 20:59 Escitalopram Oxalate (Lexapro Tab) 5 mg QAM PO 12/09/16 08:00 01/08/17 08:59 12/09/16 07:28 5 MG Levothyroxine Sodium (Synthroid Tab) 112 mcg DAILYBB PO 12/09/16 06:30 01/08/17 06:29 12/09/16 05:46 112 MCG Acyclovir Sodium 500 mg/Dextrose 110 ml @ 110 mls/hr Q12H IV 12/09/16 14:00 12/19/16 13:59 12/09/16 13:54 110 MLS/HR Acyclovir Sodium (Consult) 1 ea UD PRN N/A 12/09/16 04:45 01/08/17 04:44 Objective Vital Signs Date Time Temp Pulse Resp B/P (MAP) Pulse Ox O2 Delivery O2 Flow Rate FiO2 12/09/16 14:59 36.5 111 18 149/80 (103) 94 Room Air 12/09/16 09:16 36.4 12/09/16 08:00 Room Air 12/09/16 07:02 37.9 124 24 153/92 (112) 91 12/09/16 03:10 37.4 119 22 169/81 (110) 94 Nasal Cannula 12/09/16 02:54 Nasal Cannula 2.0 12/09/16 01:53 114 23 189/95 94 Nasal Cannula 2.0 12/09/16 00:32 112 27 168/135 92 Nasal Cannula 2.0 12/09/16 00:01 109 24 140/107 93 Nasal Cannula 2.0 12/08/16 23:17 99 17 91 12/08/16 22:47 104 17 95 12/08/16 22:12 96 12/08/16 21:57 161/107 12/08/16 21:47 107 26 12/08/16 21:16 152/100 12/08/16 20:19 36.3 115 20 177/89 92 Room Air Physical Exam General Appearance: WD/WN, no apparent distress Neck: supple, no carotid bruits Respiratory/Chest: chest non-tender, lungs clear, normal breath sounds Cardiovascular: no edema, no gallop, + irregularly irregular Abdomen: normal bowel sounds, non tender, soft Neurologic/Psychiatric: alert, oriented x 3 Skin: + rash, + pertinent finding (patient appears to have a herpetic rash with an erythematous base and vesicles along with scabbing over her left shoulder moving down over the posterior aspect of her left arm to the elbow. She also has a visible rash over the left side of her buttocks as well as her perennial area.) Laboratory Results Results Past 24 Hours Test 12/08/16 21:00 12/08/16 22:00 12/09/16 07:51 Range/Units White Blood Count 7.87 4.8-10.8 K/uL Red Blood Count 5.04 4.2-5.4 M/uL Hemoglobin 14.4 12.0-16.0 g/dL Hematocrit 42.8 37-47 % Mean Corpuscular Volume 84.9 80-100 fL Mean Corpuscular Hemoglobin 28.6 25-34 pg Mean Corpuscular Hemoglobin Concent 33.6 32-36 g/dl Platelet Count 206 130-400 K/uL Mean Platelet Volume 9.7 7.4-10.4 fL Neutrophils (%) (Auto) 71.5 % Lymphocytes (%) (Auto) 17.8 % Monocytes (%) (Auto) 9.5 % Eosinophils (%) (Auto) 0.5 % Basophils (%) (Auto) 0.4 % Neutrophils # (Auto) 5.63 1.4-6.5 K/uL Lymphocytes # (Auto) 1.40 1.2-3.4 K/uL Monocytes # (Auto) 0.75 0.11-0.59 K/uL Eosinophils # (Auto) 0.04 0-0.5 K/uL Basophils # (Auto) 0.03 0-0.2 K/uL RDW Standard Deviation 44.5 36.4-46.3 fL RDW Coefficient of Variation 14.4 11.5-14.5 % Immature Granulocyte % (Auto) 0.3 % Immature Granulocyte # (Auto) 0.02 0.00-0.02 K/uL Prothrombin Time 12.0 9.0-12.0 SECONDS Prothromb Time International Ratio 1.1 0.9-1.1 Activated Partial Thromboplast Time 40.0 21.0-31.0 SECONDS Partial Thromboplastin Ratio 1.5 Sodium Level 127 130 136-145 mmol/L Potassium Level 4.1 3.5 3.5-5.1 mmol/L Chloride Level 95 98 98-107 mmol/L Carbon Dioxide Level 23 23 21-32 mmol/L Anion Gap 9.0 9.0 3-11 mmol/L Blood Urea Nitrogen 21 12 7-18 mg/dl Creatinine 1.00 0.81 0.60-1.20 mg/dl Est Creatinine Clear Calc Drug Dose 31.4 38.7 ml/min Estimated GFR () 58.7 75.7 Estimated GFR (Non- 50.6 65.3 BUN/Creatinine Ratio 20.6 14.6 10-20 Random Glucose 75 89 70-99 mg/dl Calcium Level 9.9 8.9 8.5-10.1 mg/dl Phosphorus Level 2.3 2.5-4.9 mg/dl Magnesium Level 1.9 1.8-2.4 mg/dl Total Bilirubin 0.5 0.2-1 mg/dl Direct Bilirubin 0.1 0-0.2 mg/dl Aspartate Amino Transf (AST/SGOT) 32 15-37 U/L Alanine Aminotransferase (ALT/SGPT) 27 12-78 U/L Alkaline Phosphatase 66 45-117 U/L Total Creatine Kinase 40 26-192 U/L Creatine Kinase MB 0.6 0.5-3.6 ng/ml Creatine Kinase MB Ratio 1.5 0-3.0 Troponin I < 0.015 0-0.045 ng/ml Total Protein 7.8 6.4-8.2 gm/dl Albumin 3.5 3.4-5.0 gm/dl Thyroid Stimulating Hormone (TSH) 1.410 0.300-4.500 uIu/ml Urine Color YELLOW Urine Appearance CLEAR CLEAR Urine pH 7.0 4.5-7.5 Urine Specific [place] 1.014 1.000-1.030 Urine Protein NEG NEG Urine Glucose (UA) NEG NEG Urine Ketones NEG NEG Urine Occult Blood TRACE NEG Urine Nitrite NEG NEG Urine Bilirubin NEG NEG Urine Urobilinogen NEG NEG Urine Leukocyte Esterase NEG NEG Urine WBC (Auto) 0 0-5 /hpf Urine RBC (Auto) 0-4 0-4 /hpf Urine Hyaline Casts (Auto) 0 0-5 /lpf Urine Epithelial Cells (Auto) 5-10 0-5 /lpf Urine Bacteria (Auto) NEG NEG Assessment and Plan Patient is a 86-year-old female with a past medical history of atrial fibrillation, vascular dementia, hypertension, 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 The patient was initially worked up 3 days ago as an outpatient with her family doctor and started on valacyclovir. The patient 2 days prior to admission and also been more confused and lethargic, and was unable to walk without assistance and some history reported by her daughter. The rash then continued to progress and was noticed on admission over her buttocks and perineal area. Since admission the patient has been febrile and tachycardic, and was started on IV acyclovir with a dose of 8 mg/kg 3 times a day. The patient was seen this morning by infectious disease and deemed that it would be reasonable to have the patient continue 10 days of antibiotic IV therapy on acyclovir for disseminated varicella. According to the daughter the patient has not been on any recent immunosuppressive medications including prednisone or any arthritic medications. 1) Disseminated varicella-zoster infection - Day 2 IV acyclovir, 8 mg/kg 3 times a day - Consultation to infectious disease, recommend 10 days of total IV antibiotic therapy - Patient remains febrile this morning - Awaiting discharge for at least 24 hour of remaining afebrile, As well as crusting over of herpetic lesions. 2) Atrial fibrillation - Coreg - Pradaxa 3) Dementia - Donepezil 4) Hypothyroidism - Synthroid 5) Hyponatremia - Improving with IV Fluids 6) DVT Prophylaxis - Pradaxa 7) Code Status - Full Resuscitation 8) Disposition - We'll most likely discharge patient to SNF for therapy as well as IV medication Resident Physician Supervision Note: I interviewed and examined the patient. Discussed with Dr. Davidson and agree with findings and plan as documented in the note. Any exceptions or clarifications are listed here: None Documented By: Gerardo Small feeling fine wants to go home. explained to pt and dtr regarding zoster and acyclovir. discussed if 10 days IV truly needed, then SNF/rehab might be appropriate dispo once afebrile and lesions crust vitals noted nad breathing unlabored. L shoulder, perineal vesicles on erythematous base, a few scattered ulcerations disseminated zoster - acyclovir otherwise as above Resident Tracking Resident Involvement: Resident Care Provided Care Provided: Adult Hospital Medicine
[2016-12-09] MEDS: DONEPEZIL HCL 5 MG TAB PO SCH (21:25)
[2016-12-10 00:48] VITALS: BP 182/94; PULSE 111; TEMP 37.4; O2SAT 92
[2016-12-10] MEDS: ACYCLOVIR SOD INJ 500 MG in DEXTROSE 5% 100ML 100 ML IV SCH ×2 (02:17→13:26)
[2016-12-10] MEDS: LEVOTHYROXINE 112 MCG TAB PO SCH (06:06)
[2016-12-10 06:10] LABS: HEMATOCRIT 36.3 % (37-47); MEAN CELL VOLUME 85.2 fL (80-100); MEAN CORPUSCULAR HEMOGLOBIN 29.3 pg (25-34); MEAN CORPUSCULAR HGB CONC 34.4 g/dl (32-36); MEAN PLATELET VOLUME 9.6 fL (7.4-10.4); PLATELET COUNT 176 K/uL (130-400); RED BLOOD COUNT 4.26 M/uL (4.2-5.4); WHITE BLOOD COUNT 8.73 K/uL (4.8-10.8)
[2016-12-10 06:45] LABS: CREATININE 0.8 mg/dl (0.60-1.20); MAGNESIUM 1.7 mg/dl (1.8-2.4)
--- NOTE | 2016-12-10 07:08 | Family Medicine Progress Note ---
Progress Note Date of Service Dec 10, 2016. Subjective Pt evaluation today including: conversation w/ patient, physical exam, chart review, lab review, review of studies Pain: No pain reported this morning Voiding: no voiding problems, no incontinence Patient is resting comfortably in bed today with no acute events overnight. The patient denies any pain this morning, any pain from her rash on her left side, or any pain from her rash on her cranial area and lower back. Although the patient would like to go home, the patient understands that she will most likely need to have rehabilitation as well as IV antibiotics and it would be appropriate for her to go to a intermediate facility. Constitutional: No fever, No chills Respiratory: No cough Cardiovascular: No chest pain Abdomen: No pain, No nausea, No vomiting Female : No dysuria Skin: + rash, No bleeding Medications Current Inpatient Medications Medications (Trade) Dose Ordered Sig/Latonya Route Start Time Stop Time Status Last Admin Dose Admin Acetaminophen (Tylenol Tab) 650 mg Q4H PRN PO 12/09/16 01:00 01/08/17 00:59 12/09/16 07:27 650 MG Al Hydrox/Mg Hydrox/Simethicone (Maalox Max Susp) 15 ml Q4H PRN PO 12/09/16 01:00 01/08/17 00:59 Magnesium Hydroxide (Milk Of Magnesia Susp) 30 ml Q6H PRN PO 12/09/16 01:00 01/08/17 00:59 Polyethylene (Miralax Powder Packet) 17 gm DAILY PRN PO 12/09/16 01:00 01/08/17 00:59 Ondansetron HCl (Zofran Inj) 4 mg Q6H PRN IV 12/09/16 01:00 01/08/17 00:59 Amlodipine Besylate (Norvasc Tab) 2.5 mg QAM PO 12/09/16 08:00 01/08/17 08:59 12/09/16 07:27 2.5 MG Carvedilol (Coreg Tab) 12.5 mg QAM PO 12/09/16 08:00 01/08/17 08:59 12/09/16 07:27 12.5 MG Dabigatran (Pradaxa Cap) 75 mg BID PO 12/09/16 08:00 01/08/17 08:59 12/09/16 21:25 75 MG Donepezil HCl (Aricept Tab) 5 mg HS PO 12/09/16 21:00 01/08/17 20:59 12/09/16 21:25 5 MG Escitalopram Oxalate (Lexapro Tab) 5 mg QAM PO 12/09/16 08:00 01/08/17 08:59 12/09/16 07:28 5 MG Levothyroxine Sodium (Synthroid Tab) 112 mcg DAILYBB PO 12/09/16 06:30 01/08/17 06:29 12/10/16 06:06 112 MCG Acyclovir Sodium 500 mg/Dextrose 110 ml @ 110 mls/hr Q12H IV 12/09/16 14:00 12/19/16 13:59 12/10/16 02:17 110 MLS/HR Acyclovir Sodium (Consult) 1 ea UD PRN N/A 12/09/16 04:45 01/08/17 04:44 Objective Vital Signs Date Time Temp Pulse Resp B/P (MAP) Pulse Ox O2 Delivery O2 Flow Rate FiO2 12/10/16 00:48 37.4 111 20 182/94 (123) 92 Room Air 2.0 12/10/16 00:00 Room Air 12/09/16 20:00 Room Air 12/09/16 16:00 Room Air 12/09/16 14:59 36.5 111 18 149/80 (103) 94 Room Air 12/09/16 09:16 36.4 12/09/16 08:00 Room Air Physical Exam General Appearance: WD/WN, no apparent distress Eyes: normal inspection, sclerae normal Respiratory/Chest: chest non-tender, lungs clear, normal breath sounds Cardiovascular: regular rate, rhythm, no edema Abdomen: normal bowel sounds, non tender, soft Extremities: no pedal edema, no calf tenderness Neurologic/Psychiatric: alert, normal mood/affect, oriented x 3 Skin: + pertinent finding (Vesicular rash with erythematous base and scabbed lesions over the left shoulder spreading over the left posterior arm to the elbow, the right lower back, and the perineal area. All lesions appear to be improving and less erythematous, and they are beginning to scab over.) Laboratory Results Results Past 24 Hours Test 12/09/16 07:51 12/10/16 05:32 12/10/16 07:02 Range/Units Sodium Level 130 136-145 mmol/L Potassium Level 3.5 3.5-5.1 mmol/L Chloride Level 98 98-107 mmol/L Carbon Dioxide Level 23 21-32 mmol/L Anion Gap 9.0 3-11 mmol/L Blood Urea Nitrogen 12 7-18 mg/dl Creatinine 0.81 0.80 0.60-1.20 mg/dl Est Creatinine Clear Calc Drug Dose 38.7 39.2 ml/min Estimated GFR () 75.7 76.8 Estimated GFR (Non- 65.3 66.3 BUN/Creatinine Ratio 14.6 10-20 Random Glucose 89 70-99 mg/dl Calcium Level 8.9 8.5-10.1 mg/dl White Blood Count 8.73 4.8-10.8 K/uL Red Blood Count 4.26 4.2-5.4 M/uL Hemoglobin 12.5 12.0-16.0 g/dL Hematocrit 36.3 37-47 % Mean Corpuscular Volume 85.2 80-100 fL Mean Corpuscular Hemoglobin 29.3 25-34 pg Mean Corpuscular Hemoglobin Concent 34.4 32-36 g/dl RDW Standard Deviation 45.6 36.4-46.3 fL RDW Coefficient of Variation 14.6 11.5-14.5 % Platelet Count 176 130-400 K/uL Mean Platelet Volume 9.6 7.4-10.4 fL Magnesium Level 1.7 1.8-2.4 mg/dl Assessment and Plan Patient is an 86-year-old female that presented to the hospital with a vesicular rash over her left shoulder and arm, and was found to have a disseminated varicella-zoster infection. The patient is continuing to improve while on IV acyclovir, and has now been afebrile over the last 24 hours. We are still awaiting the remaining lesions to scab over before placing a referral to a intermediate facility. The patient was seen by physical therapy this morning, and was determined that she is not safe to return home at this time. The patient was found to have decreased safety awareness, and difficulty with getting tasks done. 1) Disseminated varicella-zoster infection - Day 3 IV acyclovir, 8 mg/kg 3 times a day - Lesions appear to be improving,With decreased erythema at the bases with improved scabbing - Consultation to infectious disease, recommend 10 days of total IV antibiotic therapy - Patient has been afebrile for the last 24 hours - Awaiting discharge for crusting over of herpetic lesions 2) Physical therapy -Seen by PT this morning - Determine the patient is not safe to return home at this time - Patient found to have decreased safety awareness and having difficulty with getting tasks done 3) Atrial fibrillation - Heart rate is improving with antibiotic therapy, and remained below 100 bpm today - Coreg - Pradaxa 4) Dementia - Donepezil 5) Hypothyroidism - Synthroid 6) Hyponatremia - Improving with IV Fluids 7) DVT Prophylaxis - Pradaxa 8) Code Status - Full Resuscitation 9) Disposition - We'll most likely discharge patient to SNF for therapy as well as IV medication Resident Physician Supervision Note: I interviewed and examined the patient. Discussed with Dr. Davidson and agree with findings and plan as documented in the note. Any exceptions or clarifications are listed here: None Documented By: Gerardo Small feeling fine. all other ROS otherwise negative except for as above vitals noted vesicles/blisters starting to show slightly exudative appearing crusts forming a/p disseminated zoster - IV acyclovir. given mild sx and improvement - ??possibly can switch to PO - will need further input from ID in this regard weakness/deconditioning - for SNF/rehab confusion - strongly suspect delirium on dementia rather than encephalopathy given overall nontoxic waxing and waning presenttaion Resident Tracking Resident Involvement: Resident Care Provided Care Provided: Adult Hospital Medicine
[2016-12-10 07:27] VITALS: BP 146/72; PULSE 98; TEMP 37.2; O2SAT 93
[2016-12-10] MEDS ORDERED: MAGNESIUM SULFATE 1GM / D5W 1 GM in PREMIXED IN D5W 100 ML IV ONE (07:30)
[2016-12-10] MEDS: AMLODIPINE BESYLATE 5 MG TAB PO SCH (07:40)
[2016-12-10] MEDS: ESCITALOPRAM OXALATE 10 MG TAB PO SCH (07:40)
[2016-12-10] MEDS: DABIGATRAN ELEXILATE 75 MG CAP PO SCH ×2 (07:40→19:35)
[2016-12-10] MEDS: CARVEDILOL 12.5 MG TAB PO SCH (07:40)
[2016-12-10 08:21] LABS: BUN/CREATININE RATIO 16.9 (10-20); CALCIUM 9.1 mg/dl (8.5-10.1); CREATININE 0.87 mg/dl (0.60-1.20); POTASSIUM 3.6 mmol/L (3.5-5.1)
--- NOTE | 2016-12-10 10:29 | Medical Student: [facility] ---
Med Student Progress Note Date of Service Dec 10, 2016. Subjective Pt evaluation today including: conversation w/ patient, physical exam, chart review, lab review, review of studies Pain: patient denies PO Intake: tolerating PO diet Voiding: no voiding problems Serina Gardner is in good spirits and states she wants to go home. She states she is able to ambulate with walker to the bathroom, which is patient's baseline and her bilateral leg weakness prior to arrival has resolved. Patient is denying any pain associated with her shingles rash or nausea (resolved since admission). Patient notes slight headache and runny nose that she says she has at baseline. Review of Systems Constitutional: + problem reported (headache reported at baseline), No fever, No chills, No sweats, No fatigue Eyes: No worsening of vision, No redness ENT: + problem reported (rhinorrhea at baseline), No hearing loss, No sore throat Respiratory: No cough, No shortness of breath Cardiac: No chest pain, No edema Abdomen: No pain, No nausea (resolved), No vomiting, No diarrhea Musculoskeletal: No joint pain, No muscle pain Female : No dysuria, No urinary frequency Neurologic: + memory loss (dementia at baseline), No weakness, No numbness/ tingling, No balance problems (ambulating with walker, at baseline) Skin: + rash (vesicular rash with erythematous base on left shoulder and right thigh/buttock), No new/changing skin lesions (no new lesions, lesions beginning to crust over) Objective Vital Signs Date Time Temp Pulse Resp B/P (MAP) Pulse Ox O2 Delivery O2 Flow Rate FiO2 12/10/16 08:00 Nasal Cannula 2.0 12/10/16 07:27 37.2 98 16 146/72 (96) 93 3.0 12/10/16 00:48 37.4 111 20 182/94 (123) 92 Room Air 2.0 12/10/16 00:00 Room Air 12/09/16 20:00 Room Air 12/09/16 16:00 Room Air 12/09/16 14:59 36.5 111 18 149/80 (103) 94 Room Air Physical Exam General Appearance: WD/WN, no apparent distress Eyes: bilateral eyes normal inspection, bilateral eyes PERRL ENT: normal ENT inspection, hearing grossly normal Neck: supple Respiratory/Chest: chest non-tender, lungs clear, normal breath sounds, no respiratory distress, no accessory muscle use Cardiovascular: no edema, + irregularly irregular (history of chronic atrial fibrillation) Abdomen: normal bowel sounds, non tender, soft Extremities: normal range of motion, non-tender, normal inspection, no pedal edema Neurologic/Psychiatric: alert, normal mood/affect, oriented x 3, + facial droop (left sided at baseline from history of caraballo's palsy) Skin: warm/dry, + rash (vessicles on left arm/shoulder/back with erythematous base that is starting to scab over; additional smaller collection of vesicles on right buttock/upper posterior thigh) Laboratory Results Last 24 Hours Test 12/10/16 05:32 12/10/16 07:36 White Blood Count 8.73 K/uL Red Blood Count 4.26 M/uL Hemoglobin 12.5 g/dL Hematocrit 36.3 % Mean Corpuscular Volume 85.2 fL Mean Corpuscular Hemoglobin 29.3 pg Mean Corpuscular Hemoglobin Concent 34.4 g/dl RDW Standard Deviation 45.6 fL RDW Coefficient of Variation 14.6 % Platelet Count 176 K/uL Mean Platelet Volume 9.6 fL Creatinine 0.80 mg/dl 0.87 mg/dl Est Creatinine Clear Calc Drug Dose 39.2 ml/min 36.0 ml/min Estimated GFR () 76.8 69.4 Estimated GFR (Non- 66.3 59.9 Magnesium Level 1.7 mg/dl Sodium Level 130 mmol/L Potassium Level 3.6 mmol/L Chloride Level 99 mmol/L Carbon Dioxide Level 23 mmol/L Anion Gap 8.0 mmol/L Blood Urea Nitrogen 15 mg/dl BUN/Creatinine Ratio 16.9 Random Glucose 81 mg/dl Calcium Level 9.1 mg/dl Medications Medications Administered Medications (Trade) Dose Ordered Sig/Latonya Route Start Time Stop Time Status Last Admin Dose Admin Sodium Chloride 1,000 ml @ 300 mls/hr Q3H20M STAT IV 12/08/16 20:42 12/09/16 00:01 DC 12/08/16 21:17 300 MLS/HR Acyclovir Sodium 750 mg/Dextrose 265 ml @ 265 mls/hr Q8H IV 12/09/16 00:30 12/09/16 04:23 DC 12/09/16 01:45 265 MLS/HR Acetaminophen (Tylenol Tab) 650 mg Q4H PRN PO 12/09/16 01:00 01/08/17 00:59 12/09/16 07:27 650 MG Potassium Chloride/Sodium Chloride 1,000 ml @ 100 mls/hr Q10H IV 12/09/16 04:30 12/10/16 00:29 DC 12/09/16 13:54 100 MLS/HR Amlodipine Besylate (Norvasc Tab) 2.5 mg QAM PO 12/09/16 08:00 01/08/17 08:59 12/10/16 07:40 2.5 MG Carvedilol (Coreg Tab) 12.5 mg QAM PO 12/09/16 08:00 01/08/17 08:59 12/10/16 07:40 12.5 MG Dabigatran (Pradaxa Cap) 75 mg BID PO 12/09/16 08:00 01/08/17 08:59 12/10/16 07:40 75 MG Donepezil HCl (Aricept Tab) 5 mg HS PO 12/09/16 21:00 01/08/17 20:59 12/09/16 21:25 5 MG Escitalopram Oxalate (Lexapro Tab) 5 mg QAM PO 12/09/16 08:00 01/08/17 08:59 12/10/16 07:40 5 MG Levothyroxine Sodium (Synthroid Tab) 112 mcg DAILYBB PO 12/09/16 06:30 01/08/17 06:29 12/10/16 06:06 112 MCG Acyclovir Sodium 500 mg/Dextrose 110 ml @ 110 mls/hr Q12H IV 12/09/16 14:00 12/19/16 13:59 12/10/16 02:17 110 MLS/HR Magnesium Sulfate 1 gm/Prmx 100 ml @ 100 mls/hr NOW ONCE IV 12/10/16 07:30 12/10/16 08:29 DC 12/10/16 07:39 100 MLS/HR Assessment and Plan Assessment and Plan: Assessment: Serina Gardner is a 86 yo female with PMHx of vascular dementia, chronic atrial fibrillation, HTN, and Caraballo's palsy of left side, presented with weakness x3 days, vesicular rash with erythematous base on left shoulder and right buttock/ thigh worsening x4 days, and potentially some confusion above baseline. Since admission patient was started on 8mg/kg TID of acyclovir. Patient was tachycardic and febrile, but has been afebrile for the last 24 hours. After infectious disease consult, patient was recommended to continue IV acyclovir for 10 days. Plan: 1) Disseminated Zoster - Continue acyclovir 8mg/kg TID - Consult Infectious disease 12/09, who recommended patient continuing acyclovir for 10days - Continue to monitor patient's rash to see if improving on treatment (not spreading, scabbing of vesicles, no increase in pain, afebrile). On 12/10, patient's rash has not spread, looks slightly less erythematous, patient is not complaining of pain, and has been afebrile for 24 hours. 2) Delirium causing generalized weakness - Continue care in hospital until can discharge to SNF or rehab (after afebrile for 24 hours and lesions have scabbed over). - Consult PT/OT/social work nurse to figure out which SNF/rehab patient can go to , pending her insurance. - [place] patient to surroundings, times of day. 3) Hyponatremia - Continue IV fluids and trend Sodium (127, 130, 130) 3) Vascular Dementia - Continue home medications (Donepezil 5mg at bedtime, Lexapro 5g/day, Melatonin 300 mcg/day) 4) Chronic atrial fibrillation / DVT prophylaxis - Continue home medications (Pradaxa 75mg/day and Carvedilol 12.5mg/day) 5) Hypothyroidism - Continue home medications (Levothyroxine 112mcg/day) 6) Chronic HTN - Continue home medications (amlodipine 2.5mg/day and Lasix 20mg 3x/week) Discharge planning: rehab hospital
[2016-12-10 14:50] VITALS: BP 116/75; PULSE 76; TEMP 36.6; O2SAT 100
[2016-12-10 16:11] VITALS: BP 119/77; PULSE 89; TEMP 36.9; O2SAT 92
[2016-12-10] MEDS: ACETAMINOPHEN 325 MG TAB PO PRN (18:43)
--- NOTE | 2016-12-10 19:03 | Infectious Disease Progress Nt ---
Progress Note Date of Service Dec 10, 2016. Subjective Pt evaluation today including: conversation w/ patient, physical exam, chart review, lab review, review of studies, conversation w/ commercial solar sales consultant, review of inpatient medication list No new complaints. Mental status at baseline. No fever. All Other Systems: Reviewed and Negative Medications Current Inpatient Medications Medications (Trade) Dose Ordered Sig/Latonya Route Start Time Stop Time Status Last Admin Dose Admin Acetaminophen (Tylenol Tab) 650 mg Q4H PRN PO 12/09/16 01:00 01/08/17 00:59 12/10/16 18:43 650 MG Al Hydrox/Mg Hydrox/Simethicone (Maalox Max Susp) 15 ml Q4H PRN PO 12/09/16 01:00 01/08/17 00:59 Magnesium Hydroxide (Milk Of Magnesia Susp) 30 ml Q6H PRN PO 12/09/16 01:00 01/08/17 00:59 Polyethylene (Miralax Powder Packet) 17 gm DAILY PRN PO 12/09/16 01:00 01/08/17 00:59 Ondansetron HCl (Zofran Inj) 4 mg Q6H PRN IV 12/09/16 01:00 01/08/17 00:59 Amlodipine Besylate (Norvasc Tab) 2.5 mg QAM PO 12/09/16 08:00 01/08/17 08:59 12/10/16 07:40 2.5 MG Carvedilol (Coreg Tab) 12.5 mg QAM PO 12/09/16 08:00 01/08/17 08:59 12/10/16 07:40 12.5 MG Dabigatran (Pradaxa Cap) 75 mg BID PO 12/09/16 08:00 01/08/17 08:59 12/10/16 07:40 75 MG Donepezil HCl (Aricept Tab) 5 mg HS PO 12/09/16 21:00 01/08/17 20:59 12/09/16 21:25 5 MG Escitalopram Oxalate (Lexapro Tab) 5 mg QAM PO 12/09/16 08:00 01/08/17 08:59 12/10/16 07:40 5 MG Levothyroxine Sodium (Synthroid Tab) 112 mcg DAILYBB PO 12/09/16 06:30 01/08/17 06:29 12/10/16 06:06 112 MCG Acyclovir Sodium 500 mg/Dextrose 110 ml @ 110 mls/hr Q12H IV 12/09/16 14:00 12/19/16 13:59 12/10/16 13:26 110 MLS/HR Acyclovir Sodium (Consult) 1 ea UD PRN N/A 12/09/16 04:45 01/08/17 04:44 Objective Vital Signs Date Time Temp Pulse Resp B/P (MAP) Pulse Ox O2 Delivery O2 Flow Rate FiO2 12/10/16 16:11 36.9 89 20 119/77 (91) 92 12/10/16 16:00 Nasal Cannula 2.0 12/10/16 14:50 36.6 76 18 116/75 (89) 100 Nasal Cannula 4.0 12/10/16 08:00 Nasal Cannula 2.0 12/10/16 07:27 37.2 98 16 146/72 (96) 93 3.0 12/10/16 00:48 37.4 111 20 182/94 (123) 92 Room Air 2.0 12/10/16 00:00 Room Air 12/09/16 20:00 Room Air Physical Exam General Appearance: WD/WN, no apparent distress Eyes: normal inspection, sclerae normal ENT: normal ENT inspection, pharynx normal Neck: supple, no adenopathy, trachea midline Respiratory/Chest: lungs clear, normal breath sounds, no respiratory distress Cardiovascular: regular rate, rhythm, no gallop, no murmur Abdomen: normal bowel sounds, non tender, soft, no organomegaly Extremities: non-tender, no calf tenderness Neurologic/Psychiatric: alert, oriented x 3 Skin: normal color, + pertinent finding (rash crusting) Laboratory Results Last 24 Hours Test 12/10/16 05:32 12/10/16 07:36 White Blood Count 8.73 K/uL Red Blood Count 4.26 M/uL Hemoglobin 12.5 g/dL Hematocrit 36.3 % Mean Corpuscular Volume 85.2 fL Mean Corpuscular Hemoglobin 29.3 pg Mean Corpuscular Hemoglobin Concent 34.4 g/dl RDW Standard Deviation 45.6 fL RDW Coefficient of Variation 14.6 % Platelet Count 176 K/uL Mean Platelet Volume 9.6 fL Creatinine 0.80 mg/dl 0.87 mg/dl Est Creatinine Clear Calc Drug Dose 39.2 ml/min 36.0 ml/min Estimated GFR () 76.8 69.4 Estimated GFR (Non- 66.3 59.9 Magnesium Level 1.7 mg/dl Sodium Level 130 mmol/L Potassium Level 3.6 mmol/L Chloride Level 99 mmol/L Carbon Dioxide Level 23 mmol/L Anion Gap 8.0 mmol/L Blood Urea Nitrogen 15 mg/dl BUN/Creatinine Ratio 16.9 Random Glucose 81 mg/dl Calcium Level 9.1 mg/dl Assessment and Plan Clinical picture most consistent with diagnosis of disseminated zoster infection , and worry about the possibility of MANAGER DOCUMENTATION involvement as well. Therefore I would continue patient on IV acyclovir to complete 10 days of therapy. Will follow.
[2016-12-10] MEDS: DONEPEZIL HCL 5 MG TAB PO SCH (19:35)
[2016-12-10 22:55] VITALS: BP 156/89; PULSE 97; TEMP 36.7; O2SAT 98
[2016-12-11] MEDS: ACYCLOVIR SOD INJ 500 MG in DEXTROSE 5% 100ML 100 ML IV SCH ×2 (01:56→13:48)
[2016-12-11] MEDS: LEVOTHYROXINE 112 MCG TAB PO SCH (05:38)
[2016-12-11 07:25] VITALS: BP 138/81; PULSE 106; TEMP 36.9; O2SAT 91
[2016-12-11] MEDS: CARVEDILOL 12.5 MG TAB PO SCH (07:54)
[2016-12-11] MEDS: ESCITALOPRAM OXALATE 10 MG TAB PO SCH (07:54)
[2016-12-11] MEDS: DABIGATRAN ELEXILATE 75 MG CAP PO SCH ×2 (07:55→19:30)
[2016-12-11] MEDS: AMLODIPINE BESYLATE 5 MG TAB PO SCH (07:55)
[2016-12-11 15:12] VITALS: BP 113/71; PULSE 83; TEMP 36.3; O2SAT 95
[2016-12-11] MEDS: DONEPEZIL HCL 5 MG TAB PO SCH (19:30)
--- NOTE | 2016-12-11 21:36 | Family Medicine Progress Note ---
Progress Note Date of Service Dec 11, 2016. Subjective Pt evaluation today including: conversation w/ patient, physical exam, chart review, lab review, review of studies Pain: No pain reported this morning Voiding: no voiding problems, no incontinence Patient is an 86-year-old female that presents to the hospital with systemic varicella infection. The patient denies any pain this morning and states that she is feeling well. I discussed with the patient the plan of weaning until her lesions are fully crusted over or discharging her to a usp facility. We also discussed the required 10 day course of antibiotic treatment , and the possibility of needing a PICC placement. Constitutional: No fever, No chills, No sweats Respiratory: No cough, No shortness of breath Cardiovascular: No chest pain, No palpitations Abdomen: No pain, No nausea, No vomiting, No diarrhea, No constipation Female : No dysuria Skin: + rash (Vesicular rash over her left shoulder posterior arm in addition to above right buttocks as well as of her perineal area) Medications Current Inpatient Medications Medications (Trade) Dose Ordered Sig/Latonya Route Start Time Stop Time Status Last Admin Dose Admin Acetaminophen (Tylenol Tab) 650 mg Q4H PRN PO 12/09/16 01:00 01/08/17 00:59 12/10/16 18:43 650 MG Al Hydrox/Mg Hydrox/Simethicone (Maalox Max Susp) 15 ml Q4H PRN PO 12/09/16 01:00 01/08/17 00:59 Magnesium Hydroxide (Milk Of Magnesia Susp) 30 ml Q6H PRN PO 12/09/16 01:00 01/08/17 00:59 Polyethylene (Miralax Powder Packet) 17 gm DAILY PRN PO 12/09/16 01:00 01/08/17 00:59 Ondansetron HCl (Zofran Inj) 4 mg Q6H PRN IV 12/09/16 01:00 01/08/17 00:59 Amlodipine Besylate (Norvasc Tab) 2.5 mg QAM PO 12/09/16 08:00 01/08/17 08:59 12/11/16 07:55 2.5 MG Carvedilol (Coreg Tab) 12.5 mg QAM PO 12/09/16 08:00 01/08/17 08:59 12/11/16 07:54 12.5 MG Dabigatran (Pradaxa Cap) 75 mg BID PO 12/09/16 08:00 01/08/17 08:59 12/11/16 19:30 75 MG Donepezil HCl (Aricept Tab) 5 mg HS PO 12/09/16 21:00 01/08/17 20:59 12/11/16 19:30 5 MG Escitalopram Oxalate (Lexapro Tab) 5 mg QAM PO 12/09/16 08:00 01/08/17 08:59 12/11/16 07:54 5 MG Levothyroxine Sodium (Synthroid Tab) 112 mcg DAILYBB PO 12/09/16 06:30 01/08/17 06:29 12/11/16 05:38 112 MCG Acyclovir Sodium 500 mg/Dextrose 110 ml @ 110 mls/hr Q12H IV 12/09/16 14:00 12/19/16 13:59 12/11/16 13:48 110 MLS/HR Acyclovir Sodium (Consult) 1 ea UD PRN N/A 12/09/16 04:45 01/08/17 04:44 Objective Vital Signs Date Time Temp Pulse Resp B/P (MAP) Pulse Ox O2 Delivery O2 Flow Rate FiO2 12/11/16 16:00 Nasal Cannula 2.0 12/11/16 15:12 36.3 83 22 113/71 (85) 95 Nasal Cannula 2.0 12/11/16 08:54 Nasal Cannula 2.0 12/11/16 07:25 36.9 106 20 138/81 (100) 91 Room Air 12/11/16 00:00 Nasal Cannula 2.0 12/10/16 22:55 36.7 97 18 156/89 (111) 98 Nasal Cannula 2.0 Physical Exam General Appearance: WD/WN, no apparent distress Eyes: normal inspection, sclerae normal Respiratory/Chest: chest non-tender, lungs clear, normal breath sounds Cardiovascular: regular rate, rhythm, no edema, no gallop Abdomen: normal bowel sounds, non tender, soft Neurologic/Psychiatric: alert Assessment and Plan The patient is an 86-year-old female that is being treated for systemic varicella-zoster infection with lesions over her left shoulder, posterior to her left arm, above her right buttocks, and on her perineal area. She is currently on day 4 of IV acyclovir with plans to treat for 10 days with IV antibiotics. The patient has been afebrile for the last 48 hours, and continues to improve. Her lesions appear to be scabbing over and we anticipate that she will be discharged to a usp facility tomorrow. 1) Disseminated varicella-zoster infection - Day 4 IV acyclovir, 8 mg/kg 3 times a day - Disseminated lesions appear to be well healing at this point, and are mostly scabbed over. - Consultation to infectious disease, recommend 10 days of total IV antibiotic therapy - Patient has been afebrile for the last 48 hours 2) Physical therapy - Determine the patient is not safe to return home at this time - Patient found to have decreased safety awareness and having difficulty with getting tasks done 3) Atrial fibrillation - Rate controlled on current medications - Coreg - Pradaxa 4) Dementia - Donepezil 5) Hypothyroidism - Synthroid 6) Hyponatremia - Improving with IV Fluids 7) DVT Prophylaxis - Pradaxa 8) Code Status - Full Resuscitation 9) Disposition - We'll most likely discharge patient to SNF for therapy - Anticipate being discharged tomorrow Resident Physician Supervision Note: I interviewed and examined the patient. Discussed with Dr. Davidson and agree with findings and plan as documented in the note. Any exceptions or clarifications are listed here: None Documented By: Gerardo Small feeling ok. no new complaints. markus noted nad breathing unlabored vesicles/ulcers starting to crust disseminated zoster - IV acyclovir, supportive care. hopefully to SNF tomorrow as long as lesions have crusted more Resident Tracking Resident Involvement: Resident Care Provided Care Provided: Adult Hospital Medicine
[2016-12-11 23:20] VITALS: BP 151/77; PULSE 94; TEMP 36.8; O2SAT 95
[2016-12-12] VITALS: O2SAT 95
[2016-12-12] MEDS: ACYCLOVIR SOD INJ 500 MG in DEXTROSE 5% 100ML 100 ML IV SCH ×2 (01:58→14:08)
[2016-12-12] MEDS: LEVOTHYROXINE 112 MCG TAB PO SCH (05:35)
[2016-12-12] MEDS: ACETAMINOPHEN 325 MG TAB PO PRN (05:35)
[2016-12-12 06:10] LABS: CREATININE 0.89 mg/dl (0.60-1.20)
[2016-12-12 07:29] VITALS: BP 153/73; PULSE 96; TEMP 36.7; O2SAT 96
--- NOTE | 2016-12-12 08:05 | Medical Student: [facility] ---
Med Student Progress Note Date of Service Dec 12, 2016. Subjective Pt evaluation today including: conversation w/ patient, chart review, lab review Pain: patient denies pain from rash, slight neck pain from sleeping PO Intake: patient tolerating PO diet Voiding: no voiding problems, no incontinence Serina Gardner is a 86 yo female with PMHx of dementia who is in good spirits. When prompted she states she has some right sided neck pain, noting it was probably from how she was sleeping, but denies any pain when rotating her head or when pressing on her neck. She denies any pain from her shingles rash and states she is ready to leave the hospital. Review of Systems Constitutional: No fever, No chills Eyes: No eye pain, No redness ENT: No nasal symptoms, No sore throat Respiratory: No cough, No wheezing, No shortness of breath Cardiac: No chest pain, No edema Abdomen: No pain, No nausea Musculoskeletal: + muscle pain (slight right sided neck pain that patient equates to sleeping on "funny"), No joint pain Female : No dysuria, No hematuria, No incontinence Neurologic: + memory loss (dementia at baseline), No numbness/tingling Endo: No excessive thirst, No excessive urination Skin: + see HPI, + rash (vesicular rash with erythematous base that is scabbing over on left shoulder and right posterior thigh/buttock) Objective Vital Signs Date Time Temp Pulse Resp B/P (MAP) Pulse Ox O2 Delivery O2 Flow Rate FiO2 12/12/16 07:29 36.7 96 18 153/73 (99) 96 Room Air 12/12/16 00:00 95 Nasal Cannula 2.0 12/11/16 23:20 36.8 94 20 151/77 (101) 95 Nasal Cannula 2.0 12/11/16 16:00 Nasal Cannula 2.0 12/11/16 15:12 36.3 83 22 113/71 (85) 95 Nasal Cannula 2.0 12/11/16 08:54 Nasal Cannula 2.0 Physical Exam General Appearance: WD/WN, no apparent distress Eyes: bilateral eyes normal inspection ENT: normal ENT inspection, hearing grossly normal Neck: supple Respiratory/Chest: no respiratory distress, no accessory muscle use Cardiovascular: no edema Extremities: normal range of motion Neurologic/Psychiatric: alert, normal mood/affect Skin: normal color, warm/dry, + rash (vesicles on erythematous base that are crusting over on left shoulder and right posterior thigh) Laboratory Results Last 24 Hours Test 12/12/16 05:13 Creatinine 0.89 mg/dl Est Creatinine Clear Calc Drug Dose 35.2 ml/min Estimated GFR () 67.5 Estimated GFR (Non- 58.3 Medications Medications Administered Medications (Trade) Dose Ordered Sig/Latonya Route Start Time Stop Time Status Last Admin Dose Admin Sodium Chloride 1,000 ml @ 300 mls/hr Q3H20M STAT IV 12/08/16 20:42 12/09/16 00:01 DC 12/08/16 21:17 300 MLS/HR Acyclovir Sodium 750 mg/Dextrose 265 ml @ 265 mls/hr Q8H IV 12/09/16 00:30 12/09/16 04:23 DC 12/09/16 01:45 265 MLS/HR Acetaminophen (Tylenol Tab) 650 mg Q4H PRN PO 12/09/16 01:00 01/08/17 00:59 12/12/16 05:35 650 MG Ondansetron HCl (Zofran Inj) 4 mg Q6H PRN IV 12/09/16 01:00 01/08/17 00:59 12/12/16 08:58 4 MG Potassium Chloride/Sodium Chloride 1,000 ml @ 100 mls/hr Q10H IV 12/09/16 04:30 12/10/16 00:29 DC 12/09/16 13:54 100 MLS/HR Amlodipine Besylate (Norvasc Tab) 2.5 mg QAM PO 12/09/16 08:00 01/08/17 08:59 12/12/16 08:57 2.5 MG Carvedilol (Coreg Tab) 12.5 mg QAM PO 12/09/16 08:00 01/08/17 08:59 12/12/16 08:56 12.5 MG Dabigatran (Pradaxa Cap) 75 mg BID PO 12/09/16 08:00 01/08/17 08:59 12/12/16 08:57 75 MG Donepezil HCl (Aricept Tab) 5 mg HS PO 12/09/16 21:00 01/08/17 20:59 12/11/16 19:30 5 MG Escitalopram Oxalate (Lexapro Tab) 5 mg QAM PO 12/09/16 08:00 01/08/17 08:59 12/12/16 08:56 5 MG Levothyroxine Sodium (Synthroid Tab) 112 mcg DAILYBB PO 12/09/16 06:30 01/08/17 06:29 12/12/16 05:35 112 MCG Acyclovir Sodium 500 mg/Dextrose 110 ml @ 110 mls/hr Q12H IV 12/09/16 14:00 12/19/16 13:59 12/12/16 14:08 110 MLS/HR Magnesium Sulfate 1 gm/Prmx 100 ml @ 100 mls/hr NOW ONCE IV 12/10/16 07:30 12/10/16 08:29 DC 12/10/16 07:39 100 MLS/HR Ketorolac Tromethamine (Toradol Inj) 15 mg NOW STAT IV. 12/12/16 08:51 12/12/16 08:58 DC 12/12/16 09:10 15 MG Assessment and Plan Assessment and Plan: Assessment: Serina Gardner is a 86 yo female with PMHx of vascular dementia, chronic atrial fibrillation, HTN, and Caraballo's palsy of left side, presented with weakness x4 days, vesicular rash with erythematous base on left shoulder and right buttock/ thigh worsening x5 days, and potentially some confusion above baseline. Since admission patient was started on 8mg/kg TID of acyclovir. Patient was tachycardic and febrile, but has been afebrile for the last 48 hours. After infectious disease consult, patient was recommended to continue IV acyclovir for 10 days. Plan: 1) Disseminated Zoster - Continue acyclovir 8mg/kg TID - Consult Infectious disease 12/09, who recommended patient continuing acyclovir for 10days - Continue to monitor patient's rash to see if improving on treatment (not spreading, scabbing of vesicles, no increase in pain, afebrile). On 12/10, patient's rash has not spread, looks slightly less erythematous, patient is not complaining of pain, and has been afebrile for 24 hours. On 12/12 patient's rash appears less erythematous and is crusting over nicely, patient is not complaining of pain, and has been afebrile for 48 hours. 2) Delirium causing generalized weakness - Continue care in hospital until can discharge to SNF or rehab (after afebrile for 24 hours and lesions have scabbed over). Patient has met criteria on 12/12, and care team is working on patient transfer to SNF. - Consult PT/OT/social human services assistants to figure out which SNF/rehab patient can go to , pending her insurance. Patient is scheduled for transfer to [facility] as she has been cleared medically. - [place] patient to surroundings, times of day. 3) Hyponatremia - Continue IV fluids and trend Sodium (127, 130, 130) 3) Vascular Dementia - Continue home medications (Donepezil 5mg at bedtime, Lexapro 5g/day, Melatonin 300 mcg/day) 4) Chronic atrial fibrillation / DVT prophylaxis - Continue home medications (Pradaxa 75mg/day and Carvedilol 12.5mg/day) 5) Hypothyroidism - Continue home medications (Levothyroxine 112mcg/day) 6) Chronic HTN - Continue home medications (amlodipine 2.5mg/day and Lasix 20mg 3x/week) Discharge planning: rehab hospital
[2016-12-12] MEDS ORDERED: KETOROLAC TROMETHAMINE 15 MG/ML VIAL IV. STA (08:51)
[2016-12-12] MEDS: ESCITALOPRAM OXALATE 10 MG TAB PO SCH (08:56)
[2016-12-12] MEDS: CARVEDILOL 12.5 MG TAB PO SCH (08:56)
[2016-12-12] MEDS: DABIGATRAN ELEXILATE 75 MG CAP PO SCH ×2 (08:57→20:38)
[2016-12-12] MEDS: AMLODIPINE BESYLATE 5 MG TAB PO SCH (08:57)
--- NOTE | 2016-12-12 09:36 | Discharge Instructions ---
Discharge Instructions Date of Service Dec 13, 2016. Admission Reason for Admission: Disseminated Varicella Discharge Discharge Diagnosis / Problem: Disseminated Varicella Discharge Goals Goal(s): Decrease discomfort, Therapeutic intervention Activity Recommendations Activity Limitations: per Instructions/Follow-up section Lifting Limitations: gradually increase as tolerated Exercise/Sports Limitations: gradually increase as tolerated . Instructions / Follow-Up Instructions / Follow-Up - You were seen in the hospital for Disseminated Varicella which is a shingles virus that has spread to multiple locations over the body - Your were admitted and treated with IV Acyclovir because disseminated varicella can be fairly nasty. Fortunately despite this potential, you've done great. - With antibiotic treatment the inflammation surrounding the skin rash improved and gradually crusted over - You also have not had any fevers for the last 72 hours - You will be discharged to a [facility] facility ([facility]) in order to complete your IV antibiotics and participate in physical therapy - IV ACYCLOVIR: 500mg IV every 12 hours as antibiotic therapy for shingles. You' ll need 6 more days of this - Please follow up with your family doctor after you have been discharged from [facility] Diet Patient's current hospital diet: AHA Diet (Heart Healthy) Discharge Diet Recommended Diet: AHA Diet (Heart Healthy) Pending Studies Studies pending at discharge: no Medical Emergencies . Who to Call and When: Medical Emergencies: If at any time you feel your situation is an emergency, please call 911 immediately. . Non-Emergent Contact Non-Emergency issues call your: Primary Care Provider . . "Provider Documentation" section prepared by Azael Davidson. . VTE Core Measure Inpt VTE Proph given/why not?: Other Anticoagulation (Pradaxa) Resident Tracking Resident Involvement: Resident Care Provided Care Provided: Adult Hospital Medicine
[2016-12-12] MEDS: DONEPEZIL HCL 5 MG TAB PO SCH (20:38)
--- NOTE | 2016-12-12 21:40 | Infectious Disease Progress Nt ---
Progress Note Date of Service Dec 12, 2016. Subjective Pt evaluation today including: conversation w/ patient, physical exam, chart review, lab review, review of studies, conversation w/ retirement sales consultant, review of inpatient medication list No new complaints today. Remains afebrile. No significant headache. All Other Systems: Reviewed and Negative Medications Current Inpatient Medications Medications (Trade) Dose Ordered Sig/Latonya Route Start Time Stop Time Status Last Admin Dose Admin Acetaminophen (Tylenol Tab) 650 mg Q4H PRN PO 12/09/16 01:00 01/08/17 00:59 12/12/16 05:35 650 MG Al Hydrox/Mg Hydrox/Simethicone (Maalox Max Susp) 15 ml Q4H PRN PO 12/09/16 01:00 01/08/17 00:59 Magnesium Hydroxide (Milk Of Magnesia Susp) 30 ml Q6H PRN PO 12/09/16 01:00 01/08/17 00:59 Polyethylene (Miralax Powder Packet) 17 gm DAILY PRN PO 12/09/16 01:00 01/08/17 00:59 Ondansetron HCl (Zofran Inj) 4 mg Q6H PRN IV 12/09/16 01:00 01/08/17 00:59 12/12/16 08:58 4 MG Amlodipine Besylate (Norvasc Tab) 2.5 mg QAM PO 12/09/16 08:00 01/08/17 08:59 12/12/16 08:57 2.5 MG Carvedilol (Coreg Tab) 12.5 mg QAM PO 12/09/16 08:00 01/08/17 08:59 12/12/16 08:56 12.5 MG Dabigatran (Pradaxa Cap) 75 mg BID PO 12/09/16 08:00 01/08/17 08:59 12/12/16 20:38 75 MG Donepezil HCl (Aricept Tab) 5 mg HS PO 12/09/16 21:00 01/08/17 20:59 12/12/16 20:38 5 MG Escitalopram Oxalate (Lexapro Tab) 5 mg QAM PO 12/09/16 08:00 01/08/17 08:59 12/12/16 08:56 5 MG Levothyroxine Sodium (Synthroid Tab) 112 mcg DAILYBB PO 12/09/16 06:30 01/08/17 06:29 12/12/16 05:35 112 MCG Acyclovir Sodium 500 mg/Dextrose 110 ml @ 110 mls/hr Q12H IV 12/09/16 14:00 12/19/16 13:59 12/12/16 14:08 110 MLS/HR Acyclovir Sodium (Consult) 1 ea UD PRN N/A 12/09/16 04:45 01/08/17 04:44 Objective Vital Signs Date Time Temp Pulse Resp B/P (MAP) Pulse Ox O2 Delivery O2 Flow Rate FiO2 12/12/16 16:00 Nasal Cannula 2.0 12/12/16 09:24 Room Air 12/12/16 07:29 36.7 96 18 153/73 (99) 96 Room Air 12/12/16 00:00 95 Nasal Cannula 2.0 12/11/16 23:20 36.8 94 20 151/77 (101) 95 Nasal Cannula 2.0 Physical Exam General Appearance: WD/WN, no apparent distress Eyes: normal inspection, sclerae normal ENT: normal ENT inspection, pharynx normal Neck: supple, no adenopathy, trachea midline Respiratory/Chest: lungs clear, normal breath sounds, no respiratory distress Cardiovascular: regular rate, rhythm, no gallop, no murmur Abdomen: normal bowel sounds, non tender, soft, no organomegaly Extremities: non-tender, no calf tenderness Neurologic/Psychiatric: alert, oriented x 3 Skin: normal color, + pertinent finding (Zoster rash crusting) Lymphatic: no adenopathy Laboratory Results Last 24 Hours Test 12/12/16 05:13 Creatinine 0.89 mg/dl Est Creatinine Clear Calc Drug Dose 35.2 ml/min Estimated GFR () 67.5 Estimated GFR (Non- 58.3 Assessment and Plan Clinical picture most consistent with diagnosis of disseminated zoster infection , and worry about the possibility of FASHION SHOW DIRECTOR involvement as well. Would continue patient on IV acyclovir to complete 10 days of therapy. Will follow.
--- NOTE | 2016-12-12 22:29 | Family Medicine Progress Note ---
Progress Note Date of Service Dec 12, 2016. Subjective Pt evaluation today including: conversation w/ patient, conversation w/ family , physical exam, chart review, lab review, review of studies Pain: No pain reported this morning Voiding: no voiding problems, no incontinence Patient is resting comfortably in bed and has no acute complaints overnight. Patient denies any pain or burning over her lesions on her arm. Constitutional: No fever, No chills Respiratory: No cough, No shortness of breath Cardiovascular: No chest pain, No palpitations Abdomen: No pain, No nausea, No vomiting, No diarrhea Female : No dysuria Objective Vital Signs Date Time Temp Pulse Resp B/P (MAP) Pulse Ox O2 Delivery O2 Flow Rate FiO2 12/13/16 09:57 36.6 85 16 97 Nasal Cannula 12/13/16 09:54 Room Air 12/13/16 07:34 36.6 85 16 148/74 (98) 97 Nasal Cannula 2.0 12/13/16 00:22 36.4 93 20 147/80 (102) 97 Nasal Cannula 2.0 12/13/16 00:00 Nasal Cannula 2.0 Physical Exam General Appearance: WD/WN, no apparent distress Eyes: normal inspection, sclerae normal Respiratory/Chest: chest non-tender, lungs clear, normal breath sounds Cardiovascular: regular rate, rhythm, no edema, no gallop Abdomen: normal bowel sounds, non tender, soft Skin: + pertinent finding (Patient has vesicular rash over her left shoulder down to her elbow, lesions appear mostly crusted over and are not weeping with erythematous base that is improving.) Assessment and Plan The patient is an 86-year-old female that is being treated for systemic varicella-zoster infection with lesions over her left shoulder, posterior to her left arm, above her right buttocks, and on her perineal area. She is currently on day 5 of IV acyclovir with plans to treat for 10 days with IV antibiotics. The patient has been afebrile for the last 72 hours, and continues to improve. Her lesions appear to be scabbing over and we anticipate that she will be discharged to a detention facility tomorrow. 1) Disseminated varicella-zoster infection - Day 5 IV acyclovir, 8 mg/kg 3 times a day - Disseminated lesions appear to be well healing at this point, and are mostly scabbed over. - Consultation to infectious disease, recommend 10 days of total IV antibiotic therapy - Patient has been afebrile for the last 72 hours 2) Physical therapy - Determine the patient is not safe to return home at this time - Patient found to have decreased safety awareness and having difficulty with getting tasks done 3) Atrial fibrillation - Rate controlled on current medications - Coreg - Pradaxa 4) Dementia - Donepezil 5) Hypothyroidism - Synthroid 6) Hyponatremia - Improving with IV Fluids 7) DVT Prophylaxis - Pradaxa 8) Code Status - Full Resuscitation 9) Disposition - Discharge patient to SNF for therapy - Anticipate being discharged tomorrow Resident Physician Supervision Note: I interviewed and examined the patient. Discussed with Dr. Davidson and agree with findings and plan as documented in the note. Any exceptions or clarifications are listed here: None Documented By: Gerardo Small feeling better wants to leave, lesions starting to crust. still waiting on insurance approval. disseminated varicella - ongoing IV acyclovir. weakness - SNF level rehab once approved. stable Resident Tracking Resident Involvement: Resident Care Provided Care Provided: Adult Hospital Medicine
[2016-12-13 00:22] VITALS: BP 147/80; PULSE 93; TEMP 36.4; O2SAT 97
[2016-12-13] MEDS: ACYCLOVIR SOD INJ 500 MG in DEXTROSE 5% 100ML 100 ML IV SCH ×2 (02:06→11:31)
[2016-12-13] MEDS: LEVOTHYROXINE 112 MCG TAB PO SCH (06:11)
[2016-12-13 07:34] VITALS: BP 148/74; PULSE 85; TEMP 36.6; O2SAT 97
[2016-12-13] MEDS: ESCITALOPRAM OXALATE 10 MG TAB PO SCH (08:21)
[2016-12-13] MEDS: CARVEDILOL 12.5 MG TAB PO SCH (08:21)
[2016-12-13] MEDS: DABIGATRAN ELEXILATE 75 MG CAP PO SCH (08:22)
[2016-12-13] MEDS: AMLODIPINE BESYLATE 5 MG TAB PO SCH (08:22)
[2016-12-13] MEDS ORDERED: [UNRECOGNIZED DRUG - OTHER] IV (09:41)
[2016-12-13 09:57] VITALS: BP 148/74; PULSE 85; TEMP 36.6; O2SAT 97
[2016-12-13] MEDS: ACETAMINOPHEN 325 MG TAB PO PRN (10:05)
--- NOTE | 2016-12-13 10:47 | Medical Student: [facility] ---
Med Student Progress Note Date of Service Dec 13, 2016. Subjective Pt evaluation today including: conversation w/ patient, physical exam, chart review, lab review Pain: patient denies pain associated with rash PO Intake: tolerating PO diet Voiding: incontinence (intermittent) Serina Gardner is a 86 yo female, with PMHx of dementia, who presented with a vesicular rash over left shoulder/back/posterior arm and right posterior thigh/ buttock, which has been healing nicely since starting IV acyclovir. Patient has no current complaints, continues to deny pain associated with rash, and is ready for transfer to [facility] for rehab. When pushed she states she has a "charley horse" in her left leg possibly from how she slept, but does not seem bothered by it and is able to ambulate with one assist to the portable latrine (at baseline for ambulation). She also reports a slight feeling of nausea (previously complained of this during her stay, and history of resolution without medicine), slight headache (at baseline), and nasal discharge (at baseline). Patient denies all other ROS as denoted below. Review of Systems Constitutional: + problem reported (headache at baseline), No fever, No chills Eyes: No worsening of vision, No redness ENT: + nasal symptoms (nasal drainage at baseline), No hearing loss, No sore throat Respiratory: No cough, No shortness of breath Cardiac: No chest pain, No edema Abdomen: + nausea (slight), No pain, No vomiting, No diarrhea Musculoskeletal: + muscle pain ("charley horse" left leg, full range of motion) , No joint pain Female : + incontinence (intermittent), No dysuria Neurologic: + memory loss (dementia at baseline), No weakness, No numbness/ tingling Skin: + rash (rash on left shoulder/back/posterior upper arm scabbing over, denies pain; one vesicle scabbing over on right posterior thigh), + new/ changing skin lesions (rash continuing to crust over/yellow appearance, no more raised blisters), No bleeding Objective Vital Signs Date Time Temp Pulse Resp B/P (MAP) Pulse Ox O2 Delivery O2 Flow Rate FiO2 12/13/16 09:57 36.6 85 16 97 Nasal Cannula 12/13/16 09:54 Room Air 12/13/16 07:34 36.6 85 16 148/74 (98) 97 Nasal Cannula 2.0 12/13/16 00:22 36.4 93 20 147/80 (102) 97 Nasal Cannula 2.0 12/13/16 00:00 Nasal Cannula 2.0 12/12/16 16:00 Nasal Cannula 2.0 Physical Exam General Appearance: WD/WN, no apparent distress Eyes: bilateral eyes normal inspection, bilateral eyes EOMI ENT: normal ENT inspection, hearing grossly normal Neck: supple Respiratory/Chest: chest non-tender, lungs clear, normal breath sounds, no respiratory distress, no accessory muscle use Cardiovascular: no edema, + irregularly irregular (history of atrial fibrillation) Abdomen: normal bowel sounds, non tender, soft Extremities: normal range of motion, non-tender, normal inspection, no pedal edema Neurologic/Psychiatric: no motor/sensory deficits, alert, normal mood/affect, + disoriented (oriented to slef and location, improved since yesterday when only oriented to self) Skin: normal color, warm/dry, + rash (crusted yellow previously vesicular rash on left shoulder; two previously larger vesicles are still red but flat (one on posterior left arm and one on posterior right thigh near buttock)), + pertinent finding (no pain from rash) Laboratory Results No labs previous 24 hours. Medications Medications Administered Medications (Trade) Dose Ordered Sig/Latonya Route Start Time Stop Time Status Last Admin Dose Admin Sodium Chloride 1,000 ml @ 300 mls/hr Q3H20M STAT IV 12/08/16 20:42 12/09/16 00:01 DC 12/08/16 21:17 300 MLS/HR Acyclovir Sodium 750 mg/Dextrose 265 ml @ 265 mls/hr Q8H IV 12/09/16 00:30 12/09/16 04:23 DC 12/09/16 01:45 265 MLS/HR Acetaminophen (Tylenol Tab) 650 mg Q4H PRN PO 12/09/16 01:00 01/08/17 00:59 12/13/16 10:05 650 MG Ondansetron HCl (Zofran Inj) 4 mg Q6H PRN IV 12/09/16 01:00 01/08/17 00:59 12/12/16 08:58 4 MG Potassium Chloride/Sodium Chloride 1,000 ml @ 100 mls/hr Q10H IV 12/09/16 04:30 12/10/16 00:29 DC 12/09/16 13:54 100 MLS/HR Amlodipine Besylate (Norvasc Tab) 2.5 mg QAM PO 12/09/16 08:00 01/08/17 08:59 12/13/16 08:22 2.5 MG Carvedilol (Coreg Tab) 12.5 mg QAM PO 12/09/16 08:00 01/08/17 08:59 12/13/16 08:21 12.5 MG Dabigatran (Pradaxa Cap) 75 mg BID PO 12/09/16 08:00 01/08/17 08:59 12/13/16 08:22 75 MG Donepezil HCl (Aricept Tab) 5 mg HS PO 12/09/16 21:00 01/08/17 20:59 12/12/16 20:38 5 MG Escitalopram Oxalate (Lexapro Tab) 5 mg QAM PO 12/09/16 08:00 01/08/17 08:59 12/13/16 08:21 5 MG Levothyroxine Sodium (Synthroid Tab) 112 mcg DAILYBB PO 12/09/16 06:30 01/08/17 06:29 12/13/16 06:11 112 MCG Acyclovir Sodium 500 mg/Dextrose 110 ml @ 110 mls/hr Q12H IV 12/09/16 14:00 12/19/16 13:59 12/13/16 02:06 110 MLS/HR Magnesium Sulfate 1 gm/Prmx 100 ml @ 100 mls/hr NOW ONCE IV 12/10/16 07:30 12/10/16 08:29 DC 12/10/16 07:39 100 MLS/HR Ketorolac Tromethamine (Toradol Inj) 15 mg NOW STAT IV. 12/12/16 08:51 12/12/16 08:58 DC 12/12/16 09:10 15 MG Assessment and Plan Assessment and Plan: Assessment: Serina Gardner is a 86 yo female with PMHx of vascular dementia, chronic atrial fibrillation, HTN, and Caraballo's palsy of left side, presented with weakness x5 days, vesicular rash with erythematous base on left shoulder and right buttock/ thigh worsening x6 days, and potentially some confusion above baseline. Since admission patient was started on 8mg/kg TID of acyclovir. Patient was tachycardic and febrile, but has been afebrile for the last 72 hours. After infectious disease consult, patient was recommended to continue IV acyclovir for 10 days. Plan: 1) Disseminated Zoster - Continue acyclovir 8mg/kg TID - Consult Infectious disease 12/09, who recommended patient continuing acyclovir for 10days - Continue to monitor patient's rash to see if improving on treatment (not spreading, scabbing of vesicles, no increase in pain, afebrile). On 12/10, patient's rash has not spread, looks slightly less erythematous, patient is not complaining of pain, and has been afebrile for 24 hours. On 12/12 patient's rash appears less erythematous and is crusting over nicely, patient is not complaining of pain, and has been afebrile for 48 hours. On 12/13 patient's rash appears crusted over, two larger lesions are still slightly red but not vesicular, patient continues to not complain of pain, and continues to be afebrile 2) Delirium causing generalized weakness - Continue care in hospital until can discharge to SNF or rehab (after afebrile for 24 hours and lesions have scabbed over). Patient has met criteria on 12/12, and care team is working on patient transfer to SNF. 12/13: patient is waiting on insurance to be cleared for [facility] for transfer hopefully today. - Consult PT/OT/social media director to figure out which SNF/rehab patient can go to , pending her insurance. Patient is scheduled for transfer to [facility] as she has been cleared medically. - [place] patient to surroundings, times of day. 3) Hyponatremia - Continue IV fluids and trend Sodium (127, 130, 130) 3) Vascular Dementia - Continue home medications (Donepezil 5mg at bedtime, Lexapro 5g/day, Melatonin 300 mcg/day) 4) Chronic atrial fibrillation / DVT prophylaxis - Continue home medications (Pradaxa 75mg/day and Carvedilol 12.5mg/day) 5) Hypothyroidism - Continue home medications (Levothyroxine 112mcg/day) 6) Chronic HTN - Continue home medications (amlodipine 2.5mg/day and Lasix 20mg 3x/week) Discharge planning: rehab hospital
--- NOTE | 2016-12-13 18:49 | Discharge Summary ---
Discharge Summary Date of Service Dec 13, 2016. Discharge Summary Admission Date: Dec 09, 2016 at 00:58 Discharge Date: Dec 12, 2016 Discharge Disposition: residential facility Principal Diagnosis: disseminated varicella, weakness/deconditioning Procedures: Last Resulted CBC 12/10/16 05:32 Last Resulted BMP 12/10/16 07:36 12/12/16 05:13 Consultations: ID Medication Reconciliation New Medications: Acyclovir Sod (Acyclovir Sodium) 500 Mg/10 Ml Inj 500 MG IV Q12, #12 DOSE Continued Medications: Amlodipine (Norvasc) 2.5 Mg Tab 2.5 MG PO QAM, TAB Carvedilol (Coreg) 12.5 Mg Tab 12.5 MG PO QAM, TAB Dabigatran Etexilate Mesylate (Pradaxa) 75 Mg Cap 75 MG PO BID, CAP Donepezil Hydrochloride (Donepezil Hcl) 5 Mg Tab 5 MG PO HS for 30 Days, TAB 5 Refills Escitalopram Oxalate (Lexapro) 5 Mg Tab 5 MG PO QAM, TAB Furosemide (Lasix) 20 Mg Tab 20 MG PO 3XWK, TAB TAKES ON MON, WED, FRI. Levothyroxine Sodium (Levothyroxine Sodium) 112 Mcg Tab 112 MCG PO QAM for 90 Days, #90 TAB 3 Refills Melatonin (Melatonin) 300 Mcg Tab 300 MCG PO HS Discontinued Medications: Valacyclovir Hcl (Valtrex) 1 Gm Tab 1000 MG PO Q8, #21 TAB STARTED 12/06/16 FOR 7 DAYS. 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 She is currently on day 4 of IV acyclovir with plans to treat for 10 days with IV antibiotics. The patient has been afebrile for the last 48 hours, and continues to improve. Her lesions appear to be scabbing over and we anticipate that she will be discharged to a assisted facility tomorrow. 1) Disseminated varicella-zoster infection - IV acyclovir BID x 10 days total as per ID recommendations - Disseminated lesions appear to be well healing at this point, and are mostly scabbed over. minimal to no pain - stable for SNF 2) weakness/deconditioning - Determine the patient is not safe to return home at this time - Patient found to have decreased safety awareness and having difficulty with getting tasks done - for SNF level rehab w goal of return home 3) Atrial fibrillation - Rate controlled on current medications - Coreg - Pradaxa 4) Dementia - Donepezil 5) Hypothyroidism - Synthroid 6) Hyponatremia - Improving -- periodic monitoring 7) DVT Prophylaxis - Pradaxa 8) Code Status - Full Resuscitation stable for SNF Total Time Spent: Less than 30 minutes This includes examination of the patient, discharge planning, medication reconciliation, and communication with other providers. Discharge Instructions Please refer to the electronic Patient Visit Report (Discharge Instructions) for additional information.
== END 2016-12-13 13:01 | DRG 866 ==
LOC: C.EDB 20:19 → C.4E 12-09 00:58 → ENRESERV 12-09 01:37
PROVIDERS: ADMIT Internal Medicine; ATTEND Family Medicine
DX: B02.7 Disseminated zoster (principal); E87.1 Hypo-osmolality and hyponatremia; B02.29 Other postherpetic nervous system involvement; E86.0 Dehydration; R53.1 Weakness; R53.81 Other malaise; I48.2 Chronic atrial fibrillation; I10 Essential (primary) hypertension; E03.9 Hypothyroidism, unspecified; F01.50 Vascular dementia, unspecified severity, without behavioral disturbance, psychotic disturbance, mood disturbance, and anxiety; F32.9 Major depressive disorder, single episode, unspecified; Z87.891 Personal history of nicotine dependence; Z79.899 Other long term (current) drug therapy